=== PATIENT | male | born 1945 | race Caucasian/White ===

== ENCOUNTER 2024-10-17 14:08 | Outpatient (AMB) | payer MEDICARE, SELFPAY ==
--- NOTE | 2024-10-17 14:29 | MHC.PC.OV ---
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: No Accompanied by: Spouse Allergies No Known Allergies Allergy (Verified 10/17/24 14:30) Tobacco use date assessed: 10/17/24 Fall risk assessment: No Falls in past year Last assessed Fall Risk: 10/17/24 Dental Screening Dental Screen Date: 10/17/24 Did you have a dental visit in the last 12 months?: No Did you have a dental problem in the last 6 months where you did not have access to dental care?: No Was dental information given to patient?: Patient has dentist HPI HPI Comments History of Present Illness Details The patient is a 78 year old male with a past medical history of CHF, atrial fibrillation, htn, hld, presenting to [facility]. Transfer from [facility] CV: [facility]. On toprol 200mg daily, eliquis 5mg twice daily hctz 12.5mg daily, lipitor 80mg daily, lisinopril 40mg daily. Denies chest pain, shortness of breath Allergies: Continues on claritin as needed. TAkes zinc, b12 1000mg daily, vitamin C, vitamin D, MV Colonoscopy 07/2024-. Told no need to repeat but always has polyps so ?5 years. ROS CONSTITUTIONAL: Denies weight loss, fever and chills. HEENT: Denies changes in vision and hearing. RESPIRATORY: Denies SOB and cough. CV: Denies palpitations and CP GI: Denies abdominal pain, nausea, vomiting and diarrhea. : Denies dysuria and urinary frequency. MSK: Denies new myalgia and joint pain. SKIN: Denies rash and pruritus. NEUROLOGICAL: Denies headache PSYCHIATRIC: Denies recent changes in mood. PHYSICAL EXAM: GENERAL: Alert and oriented x 3. NAD EYES: EOMI. Anicteric. HENT: Moist mucous membranes. No scleral icterus. No cervical lymphadenopathy. LUNGS: Clear to auscultation bilaterally. CARDIOVASCULAR: Regular rate and rhythm. No murmur. No JVD. ABDOMEN: Soft, non-tender +bs EXTREMITIES: No edema. Non-tender. SKIN: No rashes or lesions. Warm. NEUROLOGIC: No focal neurological deficits. CN II-XII grossly intact PSYCHIATRIC: Cooperative. Appropriate mood and affect [facility], [facility] Surgical History (Updated 10/17/24 @ 14:36 by Temi Sanchez CMA) History of prostate surgery Family History (Updated 10/17/24 @ 14:35 by Temi Sanchez CMA) Mother Breast cancer Pancreatic cancer Other Diabetes Social History (Updated 10/17/24 @ 14:36 by Temi Sanchez CMA) Housing: House Alcohol intake: current Patient Tobacco Use Status: Never used Tobacco e-Cigarette/Vaping Use: Never Used Second Hand Smoke Exposure: No service: Yes Current occupational status: retired Cognitive needs: No Hearing needs: No Vision needs: Yes (cataracts) Questionnaire PHQ-9 Over the last 2 weeks, how often have you been bothered by any of the following problems? 1. Little interest or pleasure in doing things: not at all 2. Feeling down, depressed, or hopeless: not at all 3. Trouble falling or staying asleep, or sleeping too much: not at all 4. Feeling tired or having little energy: not at all 5. Poor appetite or overeating: not at all 6. Feeling bad about yourself - or that you are a failure or have let yourself or your family down: not at all 7. Trouble concentrating on things, such as reading the newspaper or watching television: not at all 8. Moving or speaking so slowly that other people could have noticed. Or the opposite - being so fidgety or restless that you have been moving around a lot more than usual: not at all 9. Thoughts that you would be better off or of hurting yourself in some way: not at all Total score: 0 Source: Developed by Drs. Rafy Nogueira, Brittney Sam, Hill Garza and colleagues, with an educational anselmo from [employer]. Thrive Questionnaire Date Thrive assessed: 10/10/24 I am a: Patient What is your living situation today?: I have a steady place to live Within the past 12 months, did the food you bought not last and you didn't have the money to get more?: Never true Within the past 12 months, did you worry whether your food would run out before you got money to buy more?: Never true Do you have trouble paying for medicines?: No Do you have trouble getting transportation to medical appointments?: No Do you have trouble paying your heating and electricity bill?: No Do you have trouble taking care of your child, family member or friend?: No Do you have trouble with day-to-day activities such as bathing, preparing meals, shopping, managing finances, etc.?: No Are you currently unemployed and looking for a job?: No Are you interested in more education?: No Please select the resources that you would like help with: None Currently or been in a relationship where the following occur: No concerns reported THRIVE Score: 0 AUDIT C Alcohol Use Questionnaire (AUDIT-C) 1. How often do you have a drink containing alcohol?: 2-4 times a month 2. How many drinks containing alcohol do you have on a typical day when you are drinking?: 1 or 2 3. How often do you have six or more drinks on one occasion?: Never Total Score: 2 CHUCKIE-7 AMB Questionnaire CHUCKIE-7 Feeling nervous, anxious, or on edge: 0 = Not at all Not being able to stop or control worryin = Not at all Worrying too much about different things: 0 = Not at all Trouble relaxin = Not at all Being so restless that it is hard to sit still: 0 = Not at all Becoming easily annoyed or irritable: 0 = Not at all Feeling afraid as if something awful might happen: 0 = Not at all Total CHUCKIE-7 score (0-4 normal; 5-9 mild; 10-14 moderate; 15-21 severe): 0 Source: Developed by Drs. Rafy Nogueira, Brittney Sam, Hill Garza and colleagues, with an educational aneslmo from [employer]. Physical exam (Primary Care) Vital Signs: Last Vital Signs Pulse 85 10/17/24 14:36 BP 110/64 10/17/24 14:36 Pulse Ox 98 10/17/24 14:36 Oxygen Delivery Method Room Air 10/17/24 14:36 BMI result Body Mass Index 31.5 Tobacco/Smoking Status: Tobacco use Status Tobacco use date assessed 10/17/24 10/17/24 14:40 Patient Tobacco Use Status Never used Tobacco 10/17/24 14:40 e-Cigarette/Vaping Use Never Used 10/17/24 14:40 PHQ-9: PHQ-9 Score PHQ-9: Total score 0 10/20/24 16:19 Thrive Assessment: Date of Thrive Assessment Date Thrive assessed 10/10/24 10/17/24 14:40 Currently or been in a relationship where the following occur: No concerns reported Coding Level of Care Code New Pt Level 4 (72287) Diagnoses Encounter to establish care Z76.89 Atrial fibrillation, unspecified type I48.91 Atrial fibrillation type: unspecified Assessment & Plan Assessment & Plan (1) Encounter to establish care: Code(s): Z76.89 - Persons encountering health services in other specified circumstances Category: Medical Plan: 78 y/o to estalbish care. Past medical, surgical, social and family history reviewed (2) Atrial fibrillation: Code(s): I48.91 - Unspecified atrial fibrillation Category: Medical Qualifiers: Atrial fibrillation type: unspecified Qualified Code(s): I48.91 - Unspecified atrial fibrillation Plan: Rhythm and rate controlled Orders: Referrals Neurology Referral I48.91 - Unspecified atrial fibrillation, Z86.73 - Personal history of transient ischemic attack (TIA), and cerebral infarction without residual deficits
[2024-10-17 14:36] VITALS: BP 110/64; PULSE 85; O2SAT 98; BMI 31.5
== END 2024-10-17 15:08 | disposition home or self-care (01) ==
PROVIDERS: PCP Internal Medicine; Visit Provider Internal Medicine
DX: Z76.89 Persons encountering health services in other specified circumstances (principal); I48.91 Unspecified atrial fibrillation

== ENCOUNTER → 2024-10-17 14:08 | Outpatient (BNVA) | payer MEDICARE, SELFPAY | PROVIDERS: PCP Internal Medicine; Visit Provider Internal Medicine | DX: Z76.89 Persons encountering health services in other specified circumstances (principal); I48.91 Unspecified atrial fibrillation; I11.0 Hypertensive heart disease with heart failure; I50.9 Heart failure, unspecified; E78.5 Hyperlipidemia, unspecified; Z86.73 Personal history of transient ischemic attack (TIA), and cerebral infarction without residual deficits; Z79.01 Long term (current) use of anticoagulants; Z79.899 Other long term (current) drug therapy | CPT/HCPCS: 99202 ==

== ENCOUNTER 2024-11-26 13:10 | Outpatient (AMB) | payer MEDICARE, SELFPAY ==
--- NOTE | 2024-11-26 13:11 | MHC.OFFVIS ---
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 Repeat 15 minutes before procedure as needed for anxiety metoprolol succinate ER 100 mg PO BID multivitamin 1 tab PO DAILY [polyethylene glycol 236 Take 240 ml by mouth once for 1 dose.] [zinc 50 mg .] HPI Comments Details: 79y/o male with HTN , Hyperlipidemia, Atrial fibrillation comes for neurological evaluation. He had a CVA 7 years ago - unable to describe the symptoms. He was admitted at [facility], diagnosed with Atrial fibrillation and started on eliquis. He was doing fine but last year he started having of confusion and disorientation - lasting few minutes. 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 He has loud snoring, hypersomnia. [facility] Medical History TIA (transient ischemic attack) Hyperlipidemia CHF (congestive heart failure) Atrial fibrillation HTN (hypertension) Surgical History History of prostate surgery Family History Mother Breast cancer Pancreatic cancer Other Diabetes Social History Housing: House Alcohol intake: current Patient Tobacco Use Status: Never used Tobacco e-Cigarette/Vaping Use: Never Used Second Hand Smoke Exposure: No service: Yes Current occupational status: retired Cognitive needs: No Hearing needs: No Vision needs: Yes (cataracts) Physical Exam Vital Signs: BMI result Body Mass Index 32.2 Const General: cooperative and comfortable Nutritional Appearance: overweight Orientation/consciousness: patient oriented x3 Eyes Pupils: Equal, round and reactive pupils present Neuro Other: Mild hyperreflexia General: patient oriented x3, gait normal, tone normal, moves all extremities and no focal motor deficits Cranial nerves: Yes Facial sensation intact/muscles of mastication intact, Yes Equal, round and reactive pupils present, Yes Nystagmus not present, Yes Normal facial strength present, Yes Midline tongue present and Yes Symmetric palate elevation present Cognition (Neuro): normal cognition Gait exam (Neuro): Normal gait present Motor exam (neuro): 5/5 motor strength present throughout and Normal motor muscle tone present throughout Deep tendon reflexes (DTR's): Right triceps reflex intensity grade: 2+, Left triceps reflex intensity grade: 2+, Rt Biceps (C5, C6): 2+, Left biceps reflex intensity grade: 2+, Right brachioradialis reflex intensity grade: 2+, Left brachioradialis reflex intensity grade: 2+, Right patellar reflex intensity grade: 2+ and Left patellar reflex intensity grade: 2+ Coordination: [id number] test normal Assessment & Plan Assessment & Plan (1) TIA (transient ischemic attack): Code(s): G45.9 - Transient cerebral ischemic attack, unspecified Category: Medical (2) Snoring: Code(s): R06.83 - Snoring Category: Medical (3) Hypersomnia: Code(s): G47.10 - Hypersomnia, unspecified Category: Medical Plan Report from [facility] or [facility] SLeep study to r/o sleep apnea Continue f/u with cardiology - eliquis and aspirin 81mg qd EEG His CT from February 2024 showed a Right frontal infarct - acute Orders: Orders RT PSG in-lab sleep study Today G47.10 - Hypersomnia, unspecified, I10 - Essential (primary) hypertension, I48.91 - Unspecified atrial fibrillation, R06.83 - Snoring Medications: New aspirin (Adult Aspirin Regimen) 81 mg PO DAILY Coding Level of Care Code New Pt Level 4 (60528) Complex EM visit Add On G2211 Diagnoses TIA (transient ischemic attack) G45.9 Snoring R06.83 Hypersomnia G47.10
[2024-11-26 13:12] VITALS: BMI 32.2
--- OUTSIDE RECORDS SUMMARY | 2024-11-26 15:14 | XMS_ITS | Encounter Summary ---
Author Organization [employer] [address] Care Team Providers Care Physicians And Surgeons Name Role Phone Jacquie Fiore MD Primary Care Provider [phone] Reason for Referral * Imaging (Routine) - Authorized Specialty Diagnoses / Procedures Referred By Jj mercado Referred To Contact Cardiology Diagnoses Longstanding persistent atrial fibrillation (CMS/HCC) Cerebrovascular accident (CVA), unspecified mechanism (CMS/HCC) Ascending aorta dilation (CMS/HCC) Abnormal echocardiogram Non-ischemic cardiomyopathy (CMS/HCC) Procedures Transthoracic echocardiogram (TTE) complete with PRN contrast, bubble, strain, and 3D order panel TN TTE W 2D IMAGE COMPLETE W DOPPLER ECHO & COLOR FLOW DOPPLER ECHO TN STEVIE 2D COMPLETE W/CONTRAST OR W & WO CONTRAST WITH DOPPLER Raj Alicea MD [address] [place] [address] [facility] Referral ID Status Reason Start Date Expiration Date V isits Requested Visits Authorized [id number] Authorized 11/12/2024 11/12/2025 1 1 Reason for Visit * Reason Comments Follow-up 6 mo Encounter Details Date Type Department Care Team (Late st Contact Info) Description 11/12/2024 9:50 AM EST Office Visit [facility] - [address] [phone] Raj Alicea MD [address] [id number] Longstanding persistent atrial fibrillation (CMS/HCC) (Primary Dx); Cerebrovascular accident (CVA), unspecified mechanism (CMS/HCC); Ascending aorta dilation (CMS/HCC); Abnormal echocardiogram; Non-ischemic cardiomyopathy (CMS/HCC) Social History Tobacco Use Types Packs/Day Years Used Date Smoking Tobacco: Never Smokeless Tobacco: Never Alcohol Use Standard Drinks/Week Comments Yes 14 (1 standard drink = 0.6 oz pu re alcohol) Sex and Gender Information Value Date Recorded Sex Assigned at Not on file Gender Identity Not on file Sexual Orientation Not on file Job Start Date Occupation Industry Not on file Not on file Not on file documented as of this encounter Last Filed Vital Signs Vital Sign Reading Time Taken Comments Blood Pressure 130/70 11/12/2024 9:58 AM EST Pulse 79 11/12/2024 9:58 AM EST Temperature - - Respiratory Rate - - Oxygen Saturation 98% 11/12/2024 9:58 AM EST Inhaled Oxygen Concentration - - Weight 102 kg (225 lb) 11/12/2024 9:58 AM EST Height 177.8 cm (5' 10 ) 11/12/2024 9:58 AM EST Body Mass Index 32.28 11/12/2024 9:58 AM EST documented in this encounter Progress Notes * Raj Alicea MD - 11/12/2024 9:50 AM EST -Reji Salcedo is a 79 y.o. old male Last office visit was in March 2024 with Sandra. Elmer permanent A-fib, Nonischemic cardiomyopathy. He had a cardiac cath in 2013. They mention that note increased alcohol use, 30% ejection fraction down from 50% the year before. Exercise MIBI showed inferior and apical perfusion defects. Coronary arteries were normal.,hypertension, hyperlipidemia, stroke with altered mental status in February 2024. He had been playing golf when he suddenly became confused. He had facial droop. Initially he refused to go to the ER when 911 was called. At home he was very fatigued and tired and his brought him to the ER. There was an acute to subacute right frontal infarct when compared to 2017. But it had been noted on an MRI in 2017. CTA of the head and neck revealed no large vessel occlusion. Moderate narrowing and tortuosity of the upper basilar artery. Echo showed a dyskinetic LV apex with an EF of 50 to 55%. He was back to the ER in March 2024 with acute onset of confusion without focal abnormalities. Repeat CT scan was stable. He was alreadyon Eliquis, atorvastatin and antihypertensives. When I scratch that when he was seen 6 months ago he was feeling well and staying active doing a lot of gardening etc. ROS: Since March there have been no further spells. Throughout the warm weather he played golf and continue to do his yard work. PAST MEDICAL HISTORY: Patient Active Problem List Diagnosis Date Noted Abnormal echocardiogram 09/21/2024 Alcohol use 09/21/2024 Diagnosis deferred 09/21/2024 Secondary hypercoagulable state (CMS/HCC) 04/26/2024 TIA (transient ischemic attack) 04/26/2024 CVA (cerebral vascular accident) (CMS/HCC) 04/23/2024 HLD (hyperlipidemia) 04/23/2024 Longstanding persistent atrial fibrillation (CMS/HCC) 04/23/2024 Ascending aorta dilation (CMS/HCC) 01/17/2022 Tubular adenoma of colon 09/12/[address] 11/25/2016 Non-ischemic cardiomyopathy (CMS/HCC) 07/10/2014 Atrial fibrillation (CMS/HCC) 03/30/2011 Elevated prostate specific antigen (PSA) 12/21/2010 Obesity, unspecified 09/07/2008 Pure hypercholesterolemia 06/29/2006 Essential hypertension, benign 01/01/2006 FAMILY HISTORY: Family History Problem Relation Name Age of Onset Heart attack Father No Known Problems Daughter No Known Problems Son Heart attack Sister age 60 Lymphoma Uncle nephew Blindness Neg Hx Cataracts Neg Hx Glaucoma Neg Hx Macular degeneration Neg Hx Strabismus Neg Hx SOCIAL HISTORY: Social History Tobacco Use Smoking status: Never Smokeless tobacco: Never Substance Use Topics Alcohol use: Yes Alcohol/week: 14.0 standard drinks of alcohol ACTIVE MEDICATIONS: Outpatient Medications Prior to Visit Medication Sig Dispense Refill ALPRAZolam (XANAX) 0.25 mg tablet Take 2 Tablets by mouth as needed for Anxiety (1 tablet 30 mins prior to procedure) for up to 2 doses. apixaban (ELIQUIS) 5 mg tablet 2 (two) times a day. ascorbic acid (VITAMIN C) 1,000 mg CR tablet Take by mouth. atorvastatin (LIPITOR) 80 mg tablet TAKE ONE TABLET BY MOUTH EVERY DAY 90 tablet 1 cholecalciferol (VITAMIN D-3) 25 mcg (1,000 unit) tablet Take by mouth daily. cyanocobalamin (VIT B-12) 1,000 mcg tablet extended release ER tablet Take by mouth. hydroCHLOROthiazide (MICROZIDE) 12.5 mg capsule TAKE ONE CAPSULE BY MOUTH EVERY DAY 90 capsule 1 lisinopril (PRINIVIL,ZESTRIL) 40 mg tablet TAKE ONE TABLET BY MOUTH EVERY DAY 90 tablet 1 loratadine (CLARITIN) 10 mg tablet Take 1 tablet (10 mg total) by mouth 1 (one) time each day. metoprolol succinate (TOPROL-XL) 100 mg 24 hr tablet Take 2 tablets (200 mg total) by mouth 1 (one)time each day. MULTIVITAMIN ORAL 1 qd zinc gluconate 50 mg tablet Daily bisacodyL (DULCOLAX) 5 mg EC tablet Take 2 tablets by mouth right before your first dose of liquid prep. (Patient not taking: Reported on 11/12/2024) No facility-administered medications prior to visit. ALLERGIES: @ALL@ PHYSICAL EXAM: Blood pressure 130/70, pulse 79, height 1.778 m (70 ), weight 102 kg (225 lb), SpO2 98%. Physical Exam Constitutional: Appearance: Normal appearance. Comments: Overweight HENT: Head: Normocephalic. Eyes: Extraocular Movements: Extraocular movements intact. Pupils: Pupils are equal, round, and reactive to light. Neck: Vascular: No carotid bruit. Comments: No JVD or bruit Cardiovascular: Rate and Rhythm: Normal rate. Rhythm irregular. Pulses: Normal pulses. Heart sounds: Normal heart sounds. Pulmonary: Effort: Pulmonary effort is normal. Breath sounds: Normal breath sounds. Abdominal: General: Bowel sounds are normal. Palpations: Abdomen is soft. Musculoskeletal: Right lower leg: No edema. Left lower leg: No edema. Skin: General: Skin is warm and dry. Neurological: General: No focal deficit present. Psychiatric: Mood and Affect: Mood normal. EKG: From the hospital in March with a controlled rate otherwise unremarkable TESTING: Abstract on 09/21/2024 Component Date Value Ref Range Status Hepatitis C Screening 12/26/2013 ABSTRACTED Final Falls Risk Assessment 02/29/2024 ABSTRACTED Final Annual BMP Blood Test 09/04/2023 ABSTRACTED Final Colonoscopy 08/06/2024 NO INTERPRETATION, ABSTRACTED Final LDL/HDL Ratio 09/04/2023 2 0 - 4 Final Triglycerides 09/04/2023 50 0 - 150 mg/dL Final Cholesterol 09/04/2023 127 0 - 200 mg/dL Final HDL 09/04/2023 61 40 mg/dL Final LDL Cholesterol 09/04/2023 56 0 - 100 mg/dL Final ASSESSMENT/PLAN: Problem List Items Addressed This Visit Abnormal echocardiogram Ascending aorta dilation (CMS/HCC) CVA (cerebral vascular accident) (CMS/HCC) Longstanding persistent atrial fibrillation (CMS/HCC) - Primary Non-ischemic cardiomyopathy (CMS/HCC) No orders of the defined types were placed in this encounter. Plan: Update echocardiogram as it has been over 8 months. Then reassess medical therapy for cardiomyopathy. Add baby aspirin to Eliquis given recurrent probable TIAs. Discussed risk of bleeding and signs andsymptoms of bleeding including intracranial hemorrhage. Return to the office in 6 months to see Sandra. The [facility] team will continue to co-manage this patient following the plan of care as established by my initial visit and as per AHA guidelines for ongoing management and surveillance of permanent A-fib, cardiomyopathy, . This will include medication titration, initiation of appropriate medications and further titration, and diagnostic studies to manage this disease process. @ESIGNATURE@ documented in this encounter Plan of Treatment Upcoming Encounters Date Type Department Care Team (Late st Contact Info) Description 01/21/2025 11:00 AM EDT Ancillary Procedure [facility] - [address] [place] [address] Scheduled Orders Name Type Priority Associated Diagnoses Orde r Schedule Transthoracic echocardiogram (TTE) complete with PRN contrast, bubble, strain, and 3D order panel Echocardiography Routine Longstanding persistent atrial fibrillation (CMS/HCC) Cerebrovascular accident (CVA), unspecified mechanism (CMS/HCC) Ascending aorta dilation (CMS/HCC) Abnormal echocardiogram Non-ischemic cardiomyopathy (CMS/HCC) 1 Occurrences starting 11/12/2024 until 11/12/2025 documented as of this encounter Visit Diagnoses Diagnosis Longstanding persistent atrial fibrillation (CMS/HCC)- Primary Cerebrovascular accident (CVA), unspecified mechanism (CMS/HCC) Ascending aorta dilation (CMS/HCC) Thoracic aneurysm without mention of rupture Abnormal echocardiogram Nonspecific (abnormal) findings on radiological and other examination of other intrathoracic organs Non-ischemic cardiomyopathy (CMS/HCC) Other primary cardiomyopathies documented in this encounter Care Teams Physicians And Surgeons Relationship Specialty Start Date End Date Jacquie Fiore MD [address] [place] [id number] PCP - General 04/01/24 documented as of this encounter
--- OUTSIDE RECORDS SUMMARY | 2024-11-26 15:14 | XMS_ITS | Encounter Summary ---
Author Organization [employer] [place] [address] Care Team Providers Care Relish Maker Name Role Phone Jacquie Fiore MD Primary Care Provider [phone] Reason for Visit * Reason Comments Back Pain Slipped on ice 2 day s ago. Encounter Details Date Type Department Care Team (Late st Contact Info) Description 11/21/2024 11:00 AM EST Office Visit [facility] [place] [address] [place] [address] Fernando Junior, [employer] OPERATOR APPRENTICE [address], [place] [id number] Pain of left hip (Primary Dx) Social History Tobacco Use Types Packs/Day Years [...] Sign Reading Time Taken Comments Blood Pressure 112/60 11/21/2024 11:00 AM EST Pulse 72 11/21/2024 11:00 AM EST Temperature 36.8 ??C (98.3 ??F) 11/21/2024 11:[address] Respiratory Rate - - Oxygen Saturation 95% 11/21/2024 11:00 AM EST Inhaled Oxygen Concentration - - Weight - - Height - - Body Mass Index - - documented in this encounter Progress Notes * Fernando Junior NP - 11/21/2024 11:00 AM EST CHIEF COMPLAINT: Back Pain (Slipped on ice 2 days ago.) HPI: Reji Salcedo is a 79 y.o. old male presents urgent care for evaluation of left hip pain. Patient advises that 4 days ago he slipped on the ice landing on the left side. He complains of pain atthe left greater trochanter with significant ecchymosis. Denies pain rating down the leg. Denies numbness rating down the leg. Endorses full sensation. Denies saddle paresthesia or incontinence. Denies inability to ambulate or bear weight. Denies pain to the spine. Denies fevers, chills, nausea or vomiting. Does endorse being on blood thinners. ROS: 12 point review of symptoms unremarkable except for those idenitified in the HPI. PAST MEDICAL HISTORY: Patient Active Problem List [...] Pure hypercholesterolemia 06/29/2006 Essential hypertension, benign 01/01/2006 Past Surgical History: Procedure Laterality Date COLONOSCOPY 06/2005 PROCEDURE: HISTORICAL COLONOSCOPY; COMMENT: Normal COLONOSCOPY 2001 PROCEDURE: HISTORICAL COLONOSCOPY; COMMENT: polyp COLONOSCOPY 2014 PROCEDURE: HISTORICAL COLONOSCOPY; COMMENT: 4 small polyps: Hyperplastic x2, low risk adenoma x2 COLONOSCOPY 09/02/2020 PROCEDURE: HISTORICAL COLONOSCOPY; COMMENT: Moderately large polyps x2: Tubular adenoma x2. PROSTATECTOMY 02/26/2012 PROCEDURE: PROSTATECTOMY; COMMENT: laparascopic radical prostatectomy TONSILLECTOMY PROCEDURE: HISTORICAL TONSILLECTOMY SOCIAL HISTORY: Social History Tobacco Use Smoking status: Never Smokeless tobacco: Never Substance Use Topics Alcohol use: Yes Alcohol/week: 14.0 standard drinks of alcohol FAMILY HISTORY: Family History Problem Relation Name Age of Onset Heart attack Father No Known Problems Daughter No Known Problems Son Heart attack Sister age 60 Lymphoma Uncle nephew Blindness Neg Hx Cataracts Neg Hx Glaucoma Neg Hx Macular degeneration Neg Hx Strabismus Neg Hx Family Status Relation Name Status Father at age 79 [place], emphysema Daughter Alive Healthy Son Alive Healthy x apical hypertrophi cardiomyopathy and aortic root dilitation Sister at age 60 [place] Uncle (Not Specified) Neg Hx (Not Specified) Mother at age 75 diabetes, total knee replacement, breast cancer, CHF MGM at age 80s Old age MGF at age 80s Old age PGM Colon cancer PGF at age 73 UT Uncle Alive Lymphoma No partnership data on file MEDICATIONS DISCONTINUED/REORDERED: There are no discontinued medications. ACTIVE MEDICATIONS: No outpatient medications have been marked as taking for the 11/21/24 encounter (Office Visit) with Fernando Junior NP. ALLERGIES: No Known Allergies PHYSICAL EXAM: Vitals: 11/21/24 1100 BP: 112/60 Pulse: 72 Temp: 36.8 ??C (98.3 ??F) SpO2: 95% APPEARANCE: alert, well appearing, and in no distress HEART: normal rate and regular rhythm does have history of A-fib LUNG: clear to auscultation, no wheezes or rales, and unlabored breathing BACK: full range of motion, no tenderness, palpable spasm or pain on motion, normal reflexes and strength bilateral lower extremities, sensory exam intact bilateral lower extremities EXTREMITIES: warm well perfused with no cyanosis, clubbing or edema NEURO: alert, oriented, normal speech, no focal findings or movement disorder noted Left hip: Pain at the greater trochanter upon palpation. Significant ecchymosis. No deformity, crepitus, erythema or swelling. LABS/IMAGING: X-ray of the left hip IMPRESSION: 1. Pain of left hip XR Hip 2-3 Views Left PLAN: The patient's PMH, problem list and medications were reviewed in reference to the above diagnosis/diagnoses. Based on review of symptoms, HPI and physical examination, x-ray of the left hip was obtained in the office today. Per my read no acute findings. Sent to radiology for further read Based on ROS, HPI, and PE, suggestive of acute hip pain with ecchymosis without evidence of cauda equina syndrome at this time. No evidence of fracture at this time. No evidence of decreased circulation. Discussed causes in depth. Discussed rest, ice/heat, compression, gentle stretching, Tylenol, gentle massage. Educated on red flags symptoms. Advised to go to the ER or call 911 for these symptoms. Patient understands the plan. Patient verbalizes agreement with the plan. Orders Placed This Encounter Procedures XR Hip 2-3 Views Left Standing Status: Future Number of Occurrences: 1 Standing Expiration Date: 11/21/2025 Fernando Junior NP on 11/21/2024 at 11:31 AM EST Today's documentation was made using voice recognition software. This note may contain grammatical errors secondary to this software. documented in this encounter Plan of Treatment Upcoming Encounters Date Type Department Care Team (Late st Contact Info) Description 01/21/2025 11:00 AM EDT Ancillary Procedure [facility] [address] [facility] [address] [place] [address] documented as of this encounter Results * XR Hip 2-3 Views Left (11/21/2024 11:25 AM EST) Anatomical Region Laterality Modality Lower Extremities, Hip Left Radiograp hic Imaging 11/21/2024 11:3 2 AM EST Impressions 11/21/2024 11:34 AM EST No acute fracture or dislocation of the left hip. Soft tissue swelling is present. -------- FINAL REPORT -------- Dictated By: Krishna Ng Dictated Date: 11/21/2024 11:32 ET Assigned Physician: Krishna Ng Reviewed and Electronically Signed By: Krishna Ng Signed Date: 11/21/2024 11:34 ET Workstation ID: [id number] Transcribed By: Self Edit Transcribed Date: 11/21/2024 11:32 ET Narrative 11/21/2024 11:34 AM EST HISTORY: hip pain post fall with significant ecchymosis TECHNIQUE: Frontal and lateral radiographs of the left hip.An AP radiograph of the pelvis was obtained to assess joint symmetry. COMPARISON: None FINDINGS: No acute fracture or dislocation is identified. ??Subchondral sclerosis of the superior acetabulum. ??The femoral head is well-seated within the acetabulum. ??Moderate degenerative changes of the lower lumbar spine. ??The pubic symphysis is grossly intact. ??Moderate stool throughout the colon. ??Soft tissue swelling is present. Procedure Note Krishna Ng MD - 11/21/2024 HISTORY: hip pain post fall with significant ecchymosis TECHNIQUE: Frontal and lateral radiographs of the left hip.An APradiograph of the pelvis was obtained to assess joint symmetry. COMPARISON: None FINDINGS: No acute fracture or dislocation is identified. Subchondral sclerosis ofthe superior acetabulum. The femoral head is well-seated within theacetabulum. Moderate degenerative changes of the lower lumbar spine. Thepubic symphysis is grossly intact. Moderate stool throughout the colon.Soft tissue swelling is present. IMPRESSION: No acute fracture or dislocation of the left hip. Soft tissue swelling is present. -------- FINAL REPORT -------- Dictated By: Krishna Ng Dictated Date: 11/21/2024 11:32 ET Assigned Physician: Krishna Ng Reviewed and Electronically Signed By: Krishna Ng Signed Date: 11/21/2024 11:34 ET Workstation ID: [id number] Transcribed By: Self Edit Transcribed Date: 11/21/2024 11:32 ET Fernando Junior NP IMG XR PROCEDURES documented in this encounter Visit Diagnoses Diagnosis Pain of left hip- Primary Pain of left hip documented in this encounter Care Teams Relish Maker Relationship Specialty Start Date End Date Jacquie Fiore MD [address] [place] [id number] PCP - General 04/01/24 documented as of this encounter
--- OUTSIDE RECORDS SUMMARY | 2024-11-26 15:14 | XMS_ITS | Encounter Summary ---
Author Organization [employer] [place] [address] Care Team Providers Care Mud Worker Name Role Phone Jacquie Fiore MD Primary Care Provider [phone] Encounter Details Date Type Department Care Team (Latest Contact Info) Description 11/21/2024 11:15 AM EST - 11/21/2024 11:59 PM [facility] Hospital Encounter [facility] [address] [phone] Pain of left hip Discharge Disposition: Home or Self Care Social History Tobacco Use Types Packs/Day Years [...] on file documented as of this encounter Medications at Time of Discharge Medication Sig Dispensed Refills Start Date End Date ALPRAZolam (XANAX) 0.25 mg tablet Take 2 Tablets by mouth as needed for Anxiety (1 tablet 30 mins prior to procedure) for up to 2 doses. 04/01/2024 apixaban (ELIQUIS) 5 mg tablet 2 (two) times a day. 04/02/2024 ascorbic acid (VITAMIN C) 1,000 mg CR tablet Take by mouth. atorvastatin (LIPITOR) 80 mg tablet TAKE ONE TABLET BY MOUTH EVERY DAY 90 tablet 1 09/08/2024 bisacodyL (DULCOLAX) 5 mg EC tablet Take 2 tablets by mouth right before your first dose of liquid prep. 07/23/2024 cholecalciferol (VITAMIN D-3) 25 mcg (1,000 unit) tablet Take by mouth daily. cyanocobalamin (VIT B-12) 1,000 mcg tablet extended release ER tablet Take by mouth. hydroCHLOROthiazide (MICROZIDE) 12.5 mg capsule TAKE ONE CAPSULE BY MOUTH EVERY DAY 90 capsule 1 09/08/2024 lisinopril (PRINIVIL,ZESTRIL) 40 mg tablet TAKE ONE TABLET BY MOUTH EVERY DAY 90 tablet 1 09/08/2024 metoprolol succinate (TOPROL-XL) 100 mg 24 hr tablet Take 2 tablets (200 mg total) by mouth 1 (one) time each day. 08/29/2024 MULTIVITAMIN ORAL 1 qd zinc gluconate 50 mg tablet Daily documented as of this encounter Discharge Disposition Disposition Code Departure Means Destination Home or Self Care documented in this encounter Plan of Treatment Upcoming Encounters Date Type Department Care Team (Late st Contact Info) Description 01/21/2025 11:00 AM EDT Ancillary Procedure [facility] [address] [facility] [address] [place] [address] documented as of this encounter Procedures Procedure Name Priority Date/Time Associated Diagnosis Comments XR HIP 2-3 VIEWS LEFT STAT 11/21/2024 11:25 AM EST Pain of left hip documented in this encounter Results * XR Hip 2-3 [...] Signed Date: 11/21/2024 11:34 ET Workstation ID: [id number] Transcribed By: Self Edit Transcribed Date: 11/21/2024 [...] Signed Date: 11/21/2024 11:34 ET Workstation ID: [id number] Transcribed By: Self Edit Transcribed Date: 11/21/2024 11:32 ET Fernando Junior NP IMG XR PROCEDURES documented in this encounter Visit Diagnoses Diagnosis Pain of left hip documented in this encounter Care Teams Mud Worker Relationship Specialty Start Date End Date Jacquie Fiore MD [address] [place] [id number] PCP - General 04/01/24 documented as of this encounter
--- OUTSIDE RECORDS SUMMARY | 2024-11-26 15:14 | XMS_ITS | Clinical Summary ---
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 Name Role Phone Jacquie Fiore MD Primary Care Provider [phone] Allergies No known active allergies Medications Medication Sig Dispensed Refills Start Date End Date Status atorvastatin (LIPITOR) 80 mg tablet TAKE ONE TABLET BY MOUTH EVERY DAY 90 tablet 1 09/08/2024 Active hydroCHLOROthiazide (MICROZIDE) 12.5 mg capsule TAKE ONE CAPSULE BY MOUTH EVERY DAY 90 capsule 1 09/08/2024 Active lisinopril (PRINIVIL,ZESTRIL) 40 mg tablet TAKE ONE TABLET BY MOUTH EVERY DAY 90 tablet 1 09/08/2024 Active ALPRAZolam (XANAX) 0.25 mg tablet Take 2 Tablets by mouth as needed for Anxiety (1 tablet 30 mins prior to procedure) for up to 2 doses. 04/01/2024 Active apixaban (ELIQUIS) 5 mg tablet 2 (two) times a day. 04/02/2024 Active ascorbic acid (VITAMIN C) 1,000 mg CR tablet Take by mouth. Active bisacodyL (DULCOLAX) 5 mg EC tablet Take 2 tablets by mouth right before your first dose of liquid prep. 07/23/2024 Active cholecalciferol (VITAMIN D-3) 25 mcg (1,000 unit) tablet Take by mouth daily. Active cyanocobalamin (VIT B-12) 1,000 mcg tablet extended release ER tablet Take by mouth. Act sarina loratadine (CLARITIN) 10 mg tablet Take 1 tablet (10 mg total) by mouth 1 (one) time each day. 08/22/2024 Active metoprolol succinate (TOPROL-XL) 100 mg 24 hr tablet Take 2 tablets (200 mg total) by mouth 1 (one) time each day. 08/29/2024 Active MULTIVITAMIN ORAL 1 qd Active zinc gluconate 50 mg tablet Daily Active Active Problems Problem Noted Date Diagnosed Date Abnormal echocardiogram 09/21/2024 Overview (09/21/2024): 50% EF; LVH; mild pul htn Alcohol use 09/21/2024 Diagnosis deferred 09/21/2024 Overview (09/21/2024): Psychosexual dysfunction with inhibited sexual excitement Secondary hypercoagulable state 04/26/2024 TIA (transient ischemic attack) 04/26/2024 Overview (09/21/2024): Last Assessment & Plan: The patient had 2 episodes recently where he experienced acute onset confusion as well as 1 episode where his friends had noticed facial droop. The patient's imaging revealed a chronic right MCA infarct without acute/subacute infarcts or intracranial bleeding. CTA head and neck revealed no large vessel occlusion, moderate narrowing of the tortuous upper basilar area slightly worse than in 2017. He was seen in consultation by neurology who stated that given he was already on Eliquis, atorvastatin, and antihypertensives, there was no additional medications that were needed to prevent stroke or TIA. His symptoms were felt to be likely secondary to a TIA. ER precautions reviewed as well as the importance of remaining compliant with all of his current medical therapies. CVA (cerebral vascular accident) 04/23/2024 HLD (hyperlipidemia) 04/23/2024 Longstanding persistent atrial fibrillation 03/30 Ascending aorta dilation 01/17/2022 Overview (09/21/2024): Last Assessment & Plan: The patient's most recent echocardiogram completed 01/25/2024 revealed stable ascending aorta and sinus of Valsalva dilatation. We will continue to follow yearly with serial imaging. Tubular adenoma of colon 09/12/2020 Overview (09/21/2024): 08/[address] 11/25/2016 Overview (09/21/2024): 09/2016-dilated ascending aorta- Hepatic cysts, adrenal incidentaloma, small pulm nodule (low risk no f/up needed) Last Assessment & Plan: New orders requested. Non-ischemic cardiomyopathy 07/10/2014 Overview (09/21/2024): Last Assessment & Plan: Most recent echocardiogram completed during recent hospitalization revealed an EF of 50 to 55% with a dyskinetic apex. Unable to determine diastolic function. This is improved from previous echocardiogram revealing an EF of 40% on 01/25/2024. The patient appears euvolemic on exam and offers no symptoms concerning for acute heart failure. We will not make any changes to his current medical therapies and continue with beta-blockade and MICHAEL inhibitor. He is already on hydrochlorothiazide which appears to be providing adequate diuresis for him at this time in addition to managing his blood pressure adequately. I've asked the patient to call if they develop worsening symptoms of heart failure such as increased shortness of breath, new or worsening cough, increased swelling in the legs or ankles, or weight gain of more than 2 pounds in one day or 4 pounds in one week. Atrial fibrillation 03/30/2011 Overview (09/21/2024): Anticoagulated with apixaban, [id number] score of 4 Rate control strategy CVA 2016 requiring TPA without residual Last Assessment & Plan: The patient's rate is well-controlled on metoprolol; he reports strict compliance with anticoagulation for cardioembolic prophylaxis. He remains on 5 mg apixaban twice daily which is the appropriate dose for his weight, age, and renal function. We discussed the risks and benefits of continuing with anticoagulation and wishes to continue with the current plan. He is aware to seek emergent medical attention for any uncontrolled bleeding, signs or symptoms of GI or other internal bleeding, or for any head injury. Elevated prostate specific antigen (PSA) 011 Obesity, unspecified 09/07/2008 Overview (09/21/2024): Last Assessment & Plan: Patient is obese. Approaches towards weight loss are discussed, including burning more calories than one takes in by portion control and regular exercise with an emphasis on duration rather than intensity . Pure hypercholesterolemia 06/29/2006 Overview (09/21/2024): Last Assessment & Plan: Patient's most recent lipid panel was completed on 09/04/2023 revealing an LDL of 56; this is at goal for this patient who has no known history of coronary artery disease or diabetes but does have a history of CVA. Continue atorvastatin 80 mg once daily. Essential hypertension, benign 01/01/2006 Overview (09/21/2024): Last Assessment & Plan: Blood pressure is well-controlled on current medical therapies; continue hydrochlorothiazide, lisinopril, and metoprolol. Renal function and electrolytes stable on most recent check 04/06/2024. Encounters Date Type Department Care Team Description 11/21/2024 11:15 AM EST - 11/21/2024 11:59 PM [facility] Hospital Encounter Walk-In Clinic XRAY [facility] [address] [place] [phone] Pain of left hip Discharge Disposition: Home or Self Care 11/21/2024 11:00 AM EST Office Visit Walk-In Clinic [address] [id number] [place] [phone] Fernando Junior, PIPELINES LABORER Pain of left hip (Primary Dx) 11/12/2024 9:50 AM EST Office Visit [facility] [address] [facility] [address] [place] [phone] Raj Alicea MD Longstanding persistent atrial fibrillation (CMS/HCC) (Primary Dx); Cerebrovascular accident (CVA), unspecified mechanism (CMS/HCC); Ascending aorta dilation (CMS/HCC); Abnormal echocardiogram; Non-ischemic cardiomyopathy (CMS/HCC) 09/16/2024 Telephone Adult Medicine [address] [phone] Jacquie Fiore MD orders call from Last 3 Months Immunizations Name Administration Dates Next Due DTaP, Unspecified 08/28/2001 H1N1 Inj Preservative Free 11/01/2009 Influenza Quadravalent, MDCK , 0.5ml, with preservative (Flucelvax) 6mo and older 06/18/2016 Influenza trivalent, 0.5mL ( Fluad) 65yo and older 08/12/2023,07/18/2022,06/06/2017 Influenza trivalent, 0.5mL, preservative free (Fluarix; FluLaval; Fluzone) ages 6mo and older (Afluria) 3 years and older 06/19/2020,07/08/2018,07/29/2015,06/12,09/02/2013,07/31/2012,08/10/2011 ,08/11/2010,07/28/2009,08/27/2008,07/29 Influenza, Unspecified 06/18/2016 Topicmarks SARS-CoV-2 COVID-19, mRNA, LNP-S, preservative free 08/29/2022,02/19/2022,08/21/2021,12/29,12/08/2020 Pneumococcal conjugate 13 va lent (Prevnar 13, PCV13) 2mo and older 10/28/2015,10/10/2015,03/03/2015 Pneumococcal conjugate 20 va lent (Prevnar 20, PCV 20) 2mo and older 01/03/2024 Pneumococcal polysaccharide 23 valent (Pneumovax 23) 2yo and older 04/10/2012 Td Tetanus diptheria (Tdvax) 7yo and older 04/11/2018,08/28/2001 Tdap Tetanus diptheria acell ular pertussis (Boostrix; Adacel) 7yo and older 06/18/2016,04/29/2010 Zoster Live 01/11/2014 Zoster recombinant (Shingrix ) 19yo and older 07/22/2020,05/22/2018 Surgical History Surgery Date Site/Laterality Comments TONSILLECTOMY PROCEDURE: HISTORICAL TONSILLECTOMY COLONOSCOPY 06/2005 PROCEDURE: HISTORICAL COLONOSCOPY; COMMENT: Normal PROSTATECTOMY 02/26/2012 PROCEDURE: PROSTATECTOMY; COMMENT: laparascopic radical prostatectomy COLONOSCOPY 2001 PROCEDURE: HISTORICAL COLONOSCOPY; COMMENT: polyp COLONOSCOPY 2014 PROCEDURE: HISTORICAL COLONOSCOPY; COMMENT: 4 small polyps: Hyperplastic x2, low risk adenoma x2 COLONOSCOPY 09/02/2020 PROCEDURE: HISTORICAL COLONOSCOPY; COMMENT: Moderately large polyps x2: Tubular adenoma x2. Medical History Medical History Date Comments Essential hypertension, benign D X:Essential hypertension, benign Overweight(278.02) DX:Overweight (278.02) Mixed hyperlipidemia DX:Mixed hy perlipidemia Psychosexual dysfunction wit h inhibited sexual excitement 01/01/2006 DX:Psychosexual dysfunctio n with inhibited sexual excitement Prostate cancer (CMS/HCC) 03/08/2011 DX:Pro state cancer (HCC) Atrial fibrillation (CMS/HCC) 03/30/2011 DX :Atrial fibrillation (HCC) Abnormal echocardiogram DX:Abnor mal echocardiogram; COMMENT: 50% EF; LVH; mild pul htn Family History Medical History Relation Name Comments No Known Problems Daughter Heart attack Father Heart attack Sister age 60 No Known Problems Son Lymphoma Uncle 1 nephew Blindness Neg Hx Cataracts Neg Hx Glaucoma Neg Hx Macular degeneration Neg Hx Strabismus Neg Hx Relation Name Status Comments Daughter Alive Healthy Father (Age 79) [place], emph[place] Maternal Grandfather (Age 80s) O ld age Maternal Grandmother (Age 80s) O ld age Mother (Age 75) diabetes, total knee replacement, breast cancer, CHF Paternal Grandfather (Age 73) [place] Paternal Grandmother Colon c ancer Sister (Age 60) [place] Son Alive Healthy x apica l hypertrophi cardiomyopathy and aortic root dilitation Uncle 1 Uncle 2 Alive Lymphoma Social History Tobacco Use Types Packs/Day Years [...] file Not on file Not on file Obstetrics History Last Filed Vital Signs Vital Sign Reading [...] Mass Index 32.28 11/12/2024 9:58 AM EST Plan of Treatment Upcoming Encounters Date Type Department Care Team (Late st Contact Info) Description 01/21/2025 11:00 AM EDT Ancillary Procedure [facility] [address] [place] [address] Health Maintenance Due Date Last Done Comments Depression Screening 10/07/2022 Medicare Annual Wellness Visit 10/07/2022 Social Influencers of Health Screening 10/07/2022 Hypertension/CHF/CAD Annual BMP Blood Test 09/04/2024 09/04/2023 Falls Risk Assessment 02/28/2025 02/29/2024 DTaP,Tdap,and Td Vaccines (6 - Td or Tdap) 04/11/2028 04/11/2018, 06/18/2016, 04/29/2010, Additional history exists Cholesterol Screening (Lipid Panel) 09/04/2028 09/04/2023 Hepatitis C Screening Completed 12/26/2013 Zoster Vaccines Completed 09/28/2020, 06/30, 05/22/2018, Additional history exists RSV Immunization Patients 60+ Years Old Completed 09/02/2023 Pneumococcal Vaccine: 65+ Years Completed 01/03/2024, 10/28/2015, 10/10/2015, Additional history exists COVID-19 Vaccine Completed 07/30/2024, , 08/29/2022, Additional history exists Influenza Vaccine Completed 07/30/2024, , 07/03/2023, Additional history exists Colorectal Cancer Screening: Colonoscopy Discontinued 08/06/2024 HIB Vaccines Aged Out No longer eligi ble based on patient's age to complete this topic HPV Vaccines Aged Out No longer eligi ble based on patient's age to complete this topic Hepatitis A Vaccines Aged Out No long er eligible based on patient's age to complete this topic Hepatitis B Vaccines Aged Out No long er eligible based on patient's age to complete this topic IPV Vaccines Aged Out No longer eligi ble based on patient's age to complete this topic MMR Vaccines Aged Out No longer eligi ble based on patient's age to complete this topic Meningococcal ACWY Vaccine Aged Out N o longer eligible based on patient's age to complete this topic RSV Immunization Patients Under 20 months Aged Out No longer eligible based on patient's age to complete this topic Varicella Vaccines Aged Out No longer eligible based on patient's age to complete this topic Procedures Procedure Name Priority Date/Time Associated Diagnosis Comments XR HIP 2-3 VIEWS LEFT STAT 11/21/2024 11:25 AM EST Pain of left hip COLONOSCOPY Routine 08/06/2024 FALLS RISK ASSESSMENT Routine 02/29/2024 ANNUAL BMP BLOOD TEST Routine 09/04/2023 LIPID PANEL Routine 09/04/2023 HEPATITIS C SCREENING Routine 12/26/2013 from Last 3 Months or Most Recently Relevant to Health Maintenance Results * XR Hip 2-3 Views Left [...] Signed Date: 11/21/2024 11:34 ET Workstation ID: [id number] Transcribed By: Self Edit Transcribed Date: 11/21/2024 [...] Signed Date: 11/21/2024 11:34 ET Workstation ID: [id number] Transcribed By: Self Edit Transcribed Date: 11/21/2024 11:32 ET Fernando Junior NP IMG XR PROCEDURES * Colonoscopy (08/06/2024) [facility] Colonoscopy NO INTERPRETATION , ABSTRACTED Anatomical Region Laterality Modality Other Historical Provider MD JESÚS SCHUMACHER * Falls Risk Assessment (02/29/2024) [facility] Falls Risk Assessment ABSTRACTED Historical Provider MD JESÚS SCHUMACHER * Annual BMP Blood Test (09/04/2023) [facility] Annual BMP Blood Test ABSTRACTED Historical Provider MD JESÚS SCHUMACHER [facility] Lipid panel (09/04/2023) LDL/HDL Ratio 2 0 - 4 Triglycerides 50 0 - 150 mg/dL Cholesterol 127 0 - 200 mg/dL HDL 61 40 mg/dL LDL Cholesterol 56 0 - 100 mg/dL Blood Venous blood specimen / Unknown Historical Provider LAB BLOOD ORDERAB LES * Hepatitis C Screening (12/26/2013) Pathologist [facility] Hepatitis C Screening ABSTRACTED Historical Provider HEALTH MAINTENANC E from Last 3 Months or Most Recently Relevant to Health Maintenance Care Teams Propagator Laborer Relationship Specialty Start Date End Date Jacquie Fiore MD [address] [place] [phone] PCP - General 04/01/24
== END 2024-11-26 13:52 | disposition home or self-care (01) ==
PROVIDERS: PCP Internal Medicine; Visit Provider Psychiatry & Neurology Neurology
DX: G45.9 Transient cerebral ischemic attack, unspecified (principal); R06.83 Snoring; G47.10 Hypersomnia, unspecified
CPT/HCPCS: 99204; G2211

== ENCOUNTER → 2024-11-26 13:10 | Outpatient (BNVA) | payer MEDICARE, SELFPAY | PROVIDERS: PCP Internal Medicine; Visit Provider Psychiatry & Neurology Neurology | DX: R06.83 Snoring (principal); I10 Essential (primary) hypertension; I48.91 Unspecified atrial fibrillation; G47.10 Hypersomnia, unspecified; Z79.01 Long term (current) use of anticoagulants; Z86.73 Personal history of transient ischemic attack (TIA), and cerebral infarction without residual deficits | CPT/HCPCS: 99202 ==

== ENCOUNTER 2025-01-30 09:33 | Outpatient (AMB) | payer MEDICARE, SELFPAY ==
--- NOTE | 2025-01-30 09:56 | A.OFFVIS_ITS ---
Vital Signs 3 01/30/25 09:57 Height 5 ft 11 in Weight 229 lb BMI 31.9 BP 138/92 H Blood Pressure Location Rt brachial Position Sitting Pulse 65 Pulse Source Pulse Oximeter Pulse Oximetry (%) 100 Oxygen Delivery Method Room Air Intake Visit Reasons: Okay per Paty Intake Note: Patient presents for follow up MRI had a seizure while on vacation. Allergies No Known Allergies Allergy (Verified 01/30/25 10:02) Medication List - Last Reconciled 01/30/25 by ANAND Shaver alprazolam mg PO apixaban 5 mg PO BID ascorbic acid (vitamin C) 1 g PO DAILY aspirin (Adult Aspirin Regimen) 81 mg PO DAILY atorvastatin 80 mg PO DAILY bisacodyl 10 mg PO BEDTIME cholecalciferol (vitamin D3) 25 mcg PO DAILY cyanocobalamin (vitamin B-12) (Vitamin B-12) 1,000 mcg PO DAILY Eliquis (apixaban) 5 mg PO BID NS hydrochlorothiazide 12.5 mg PO DAILY levetiracetam (Keppra) 500 mg PO BID lisinopril 40 mg PO DAILY loratadine 10 mg PO DAILY lorazepam Take one tablet one hour prior to procedure. Repeat 15 minutes before procedure as needed for anxiety metoprolol succinate ER 100 mg PO BID multivitamin 1 tab PO DAILY [polyethylene glycol 236 Take 240 ml by mouth once for 1 dose.] [zinc 50 mg .] HPI Comments Details: 79-year-old male presents for urgent follow-up appointment for new onset seizure activity occurring on 01/26/2025. Patient is accompanied by his , who assist with history. This past Sunday, pt had his 1st ever seizure attack while he was in [place] to see his son play hockey. states pt was sleeping woke-up to the patient making a loud/snoring/breathing sound, and then found pt was unconscious, bleeding from his mouth- had bitten tongue nad lip, his left arm was rigid/wrist was turning in and shaking, his whole body was shaking. They are unsure exactly how long he was unconscious, but state he did open his eyes and was restless/combative once he was brought into the ambulance. They do not believe he lost urinary control. He was brought to a [place] ER, and then transferred to [facility] in [facility]. Per discharge paperwork, pt had a 2nd seizure during EMS transport to [facility]. Pt required sedation and ICU admission, intubation. Neurocritical diagnosis was first-time seizure, suspected to be due to excess alcohol use and sleep deprivation. Inpatient video EEG was abnormal showing postictal encephalopathy with diffuse voltage attenuation and I use rhythmic delta slowing and background slowing, but did not show any epileptic discharges. Inpatient brain MRI showed chronic white matter changes, encephalomalacia, and a 6 mm probable meningioma. Patient was treated in patient with Keppra. Neurology team had considered holding Keppra, however as patient has known alcohol use, has extensive white intracerebral matter changes, and needed to travel back to [place], patient was advised to continue taking Keppra until we evaluated here. Patient was advised to abstain from alcohol use and to avoid driving for 6 months in accordance with [place] law. He was d/c'd home on keppra 1000mg bid. He believes he takes a vit B 6 supplement. He denies any residual effects- though is a bit fatigued. His tongue and lips are still bruised and sore. They are curious if he should continue on the Keppra, driving restrictions, and alcohol restrictions. states that prior to the seizure- his routine was disrupted by the travel, flight, he had not drank as much fluids as usual- so fluids was primarily diet coke, some alcohol- a beer or two (and that day a celebratory shot), and coffee. Notes that he probably had drank less alcohol than usual- does not drink at home, but drinks everyday at his club- [employer] and [employer] and then goes to 2nd club and has 1-2 more drinks. Patient denies any history of similar seizure activity. 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 a couple of TIAs. And since last January, he has had 4 episodes of staring off in a fog for 5 minutes or so, and then he returns to normal baseline. 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 Hypersomnia, persistent Hypersomnia Snoring TIA (transient ischemic attack) Hyperlipidemia CHF (congestive heart failure) Atrial fibrillation HTN (hypertension) Surgical History History of prostate surgery Family History Mother Breast cancer Pancreatic cancer Other Diabetes Social History Housing: House Alcohol intake: current Patient Tobacco Use Status: Never used Tobacco e-Cigarette/Vaping Use: Never Used Second Hand Smoke Exposure: No service: Yes Current occupational status: retired Cognitive needs: No Hearing needs: No Vision needs: Yes (cataracts) Physical Exam Vital Signs: Last Vital Signs Pulse 65 01/30/25 09:57 BP 138/92 H 01/30/25 09:57 Pulse Ox 100 01/30/25 09:57 Oxygen Delivery Method Room Air 01/30/25 09:57 BMI result Body Mass Index 31.9 Const General: cooperative and comfortable Nutritional Appearance: overweight Orientation/consciousness: patient oriented x3 Eyes Pupils: Equal, round and reactive pupils present Neuro Other: Distal tongue ecchymosis General: patient oriented x3, gait normal, moves all extremities and no focal motor deficits Cranial nerves: Yes Facial sensation intact/muscles of mastication intact, Yes Equal, round and reactive pupils present, Yes Normal facial strength present and Yes Midline tongue present Cognition (Neuro): normal cognition Gait exam (Neuro): Normal gait present Motor exam (neuro): 5/5 motor strength present throughout and Normal motor muscle tone present throughout Results Reviewed Results Reviewed: 01/26/2025, labs showed normal creatinine, iCal, LFTs Mild hypernatremia with sodium 147 and hyperkalemia with K5.2, improved upon discharge Initial WBC 14.7, which trended down to 8.5 Initial lactate 14.6, which trended down to 1.7 ETOH undetectable Straight 11/27/2024, CT head without contrast: Moderate presumed chronic small- vessel ischemic changes. Moderate generalized volume. There are small chronic infarcts involving the left lateral temporal lobe, the right frontal operculum and the left cerebellar severe. 01/26/2025, brain MRI with and without contrast: No acute intracranial abnormality 6 mm presumed meningioma along the left orbitofrontal lobe without substantial associated mass effect. Chronic findings including bifrontal encephalomalcia, right grater than left. Patchy and confluent nonspecific Lara you/FLAIR hyperintensities within the cerebral white matter most consistent with moderate chronic microvascular ischemic change. Chronic left cerebellar lacunar infarct. Moderate generalized cerebral atrophy. No hydrocephalus. Normal position of the cerebellar tonsil. Assessment & Plan Assessment & Plan (1) Seizure: Comment: 01/26/2025, witnessed Tonic-clonic grand mal seizure x's 2- likely provoked due to change in alcohol use, dehydration, sleep deprivation due to travel. 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 Discussed that this seizure attack (in which patient had 2 witnessed seizures), was likely provoked due to change in alcohol intake, possible dehydration, sleep deprivation due to travel, thus the seizure is likely an isolated incident. However patient does have risk factor for this recurring, due to significant cerebral white matter changes, chronic microangiopathic changes, encephalomalacia, and history of alcohol use (which is not clear that patient will stopped completely at this point). Additionally, discussed that as patient is on anticoagulant, he would be at risk for significant head injury if he were to have another seizure tagging fall and strike his head. And although there is no known history of seizure, there have been episodes of brief episodes of spacing out. Thus, at this point I would suggest he continue on antiepileptic treatment. I have advise patient to continue on Keppra 1000 mg p.o. b.i.d. for now. I will provide small order for clonazepam ODT 2 mg, to use for seizure activity lasting longer than 2 minutes. If he is currently taking vitamin B6, he may continue to do so. I have advised him to undergo follow-up baseline EEG. Upon review, we could consider 48-72 hour ambulatory EEG Plan for 6 month follow-up brain MRI to follow presumed 6 mm left frontal lobe meningioma. Patient is advised to abstain from alcohol use to minimize risk for provoking future seizures, as well as for his overall cardiovascular health and well- being. 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 Patient's advised to monitor for previously seen spacing out episodes. Patient's asked us to review previous MRI reports from 2017, which we have requested from [facility]. We have kept the copy of patient's most recent brain MRI while in [place] for review if needed. Pt to follow-up in 1-2 months or sooner prn. 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
[2025-01-30 09:57] VITALS: BP 138/92; PULSE 65; O2SAT 100; BMI 31.9
--- OUTSIDE RECORDS SUMMARY | 2025-01-30 10:31 | XMS_ITS | Clinical Summary ---
Author Organization [facility] Address [address] [place] [phone] Phone Care Team Providers Care Dance Studio Manager Name Role Phone Jacquie Fiore MD Primary Care Provider [phone] Allergies No known active allergies Medications atorvastatin (LIPITOR) 80 mg tablet TAKE ONE TABLET BY MOUTH EVERY DAY 90 tablet 1 09/08/2024 Active hydroCHLOROthia zide (MICROZIDE) 12.5 mg capsule TAKE ONE CAPSULE BY MOUTH EVERY DAY 90 capsule 1 09/08/2024 Active lisinopril (PRINIVIL,ZESTR IL) 40 mg tablet TAKE ONE TABLET BY [...] extended release ER tablet Take by mouth. Active loratadine (CLARITIN) 10 mg tablet Take 1 tablet (10 mg total) by mouth 1 (one) time each day. 08/22/2024 Active metoprolol succinate (TOPROL-XL) 100 mg 24 hr tablet Take 2 tablets (200 mg total) by mouth 1 (one) time each day. 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 Last Assessment & [...] Encounters Date Type Department Care Team Description 01/21/2025 11:00 AM EDT Ancillary Procedure [facility] [address] [facility] [address] [place] [phone] Longstanding persistent atrial fibrillation (CMS/HCC); Cerebrovascular accident (CVA), unspecified mechanism (CMS/HCC); Ascending aorta dilation (CMS/HCC); Abnormal echocardiogram; Non-ischemic cardiomyopathy (CMS/HCC) 11/21/2024 11:15 AM EST - 11/21/2024 11:59 PM EST Hospital Encounter [facility] [place] [address] [place] [id number] Pain of left hip Discharge Disposition: Home or Self Care 11/21/2024 11:00 AM EST Office Visit [facility] [place] [address] [place] [phone] Fernando Junior, MELISA Pain of left hip (Primary Dx) 11/12/2024 9:50 AM EST Office Visit [facility] [address] [facility] [address] [place] [address] Raj Alicea MD Longstanding persistent atrial fibrillation (CMS/HCC) (Primary Dx); Cerebrovascular accident (CVA), unspecified mechanism (CMS/HCC); Ascending aorta dilation (CMS/HCC); Abnormal echocardiogram; Non-ischemic cardiomyopathy (CMS/HCC) from Last 3 Months Immunizations Name Administration Dates Next Due DTaP, Unspecified 08/28/2001 H1N1 Inj Preservative Free 11/01/2009 Influenza Quadravalent, MDCK , 0.5ml, with preservative (Flucelvax) 6mo and older 06/18/2016 Influenza trivalent, 0.5mL ( Fluad) 65yo and older 08/12/2023,07/18/2022,06/06/2017 Influenza trivalent, 0.5mL, preservative free (Fluarix; FluLaval; Fluzone) ages 6mo and older (Afluria) 3 years and older 06/19/2020,07/08/2018,07/29/2015,06/12,09/02/2013,07/31/2012,08/10/2011 ,08/11/2010,07/28/2009,08/27/2008,07/29 Influenza, Unspecified 06/18/2016 CARGOBR SARS-CoV-2 COVID-19, mRNA, LNP-S, preservative free 08/29/2022,02/19/2022,08/21/2021,12/29,12/08/2020 [...] Comments Daughter Alive Healthy Father (Age 79) [place], emphys lawrence Maternal Grandfather (Age 80s) O ld age Maternal Grandmother (Age 80s) O ld age Mother (Age 75) diabetes, total knee replacement, breast cancer, CHF Paternal Grandfather (Age 73) [place] Paternal Grandmother Colon c ancer Sister (Age 60) NM Son Alive Healthy x apica l hypertrophi cardiomyopathy and aortic root dilitation Uncle 1 Uncle 2 Alive Lymphoma Social History Tobacco Use Types Packs/Day Years Used Date Smoking Tobacco: Never Smokeless Tobacco: Never Alcohol Use Standard Drinks/Week Comments Yes 14 (1 standard drink = 0.6 oz pu re alcohol) Sex and Gender Information Value Date Recorded Sex Assigned at Not on file Legal Sex Male 11:46 PM EST Gender Identity Not on file Sexual Orientation Not on file Obstetrics History Last Filed Vital Signs Vital Sign Reading Time Taken Comments Blood Pressure 145/90 01/21/2025 12:26 PM EDT Pulse 72 11/21/2024 11:00 AM EST Temperature 36.8 ??C (98.3 ??F) 11/21/2024 11:[address] Respiratory Rate - - Oxygen Saturation 95% 11/21/2024 11:00 AM EST Inhaled Oxygen Concentration - - Weight 106 kg (233 lb) 01/21/2025 12:26 PM EDT Height 177.8 cm (5' 10 ) 01/21/2025 12:26 PM EDT Body Mass Index 33.43 01/21/2025 12:26 PM EDT Plan of Treatment Health Maintenance Due Date Last Done Comments Hepatitis A Vaccines (1 of 2 - Risk 2-dose series) 1964 Depression Screening 10/07/2022 Medicare Annual Wellness Visit 10/07/2022 Social Influencers of Health Screening 10/07/2022 Falls Risk Assessment 02/28/2025 02/29/2024 Hypertension/CHF/CAD Annual BMP Blood Test 01/28/2026 01/28/2025, 01/27/2025, 09/04/2023 DTaP,Tdap,and Td Vaccines (6 - Td or Tdap) 04/11/2028 04/11/2018, 06/18/2016, 04/29/2010, Additional history exists Cholesterol Screening (Lipid Panel) 01/26/2030 01/26/2025, 09/04/2023 Hepatitis C Screening Completed 12/26/2013 Zoster Vaccines Completed 09/28/2020, 06/30, 05/22/2018, Additional history exists RSV Immunization Adult Patients Completed 09/02/2023 Pneumococcal Vaccine: 50+ Years Completed 01/03/2024, 10/28/2015, 10/10/2015, Additional history [...] patient's age to complete this topic Meningococcal B Vacine Aged Out No lo nger eligible based on patient's age to complete this topic RSV Immunization Patients Under 20 months Aged Out No longer eligible based on patient's age to complete this topic Varicella Vaccines Aged Out No longer eligible based on patient's age to complete this topic Procedures Procedure Name Priority Date/Time Associated Diagnosis Comments TRANSTHORACIC ECHOCARDIOGRAM (TTE) COMPLETE W/ CONTRAST Routine 01/21/2025 11:55 AM EDT Longstanding persistent atrial fibrillation (CMS/HCC) Cerebrovascular accident (CVA), unspecified mechanism (CMS/HCC) Ascending aorta dilation (CMS/HCC) Abnormal echocardiogram Non-ischemic cardiomyopathy (CMS/HCC) XR HIP 2-3 VIEWS LEFT STAT 11/21/2024 11:25 AM EST Pain of left hip COLONOSCOPY Routine 08/06/2024 FALLS RISK ASSESSMENT Routine 02/29/2024 ANNUAL BMP BLOOD TEST Routine 09/04/2023 LIPID PANEL Routine 09/04/2023 HEPATITIS C SCREENING Routine 12/26/2013 from Last 3 Months or Most Recently Relevant to Health Maintenance Results * (ABNORMAL) TRANSTHORACIC ECHOCARDIOGRAM (TTE) COMPLETE W/ CONTRAST (01/21/2025 11:55 AM EDT) LV EDV (A2C) 133 mL CV PACS LV EDV (A4C) 135 mL CV PACS LV Diastolic Volume (BP) 135 62 - 150 mL CV PACS LV ESV (A2C) 79 mL CV PACS LV ESV (A4C) 50 mL CV PACS LV Systolic Volume (BP) 63(A) 21 - 61 mL CV PACS IVSD 1.0 0.6 - 1.0 cm CV PACS LVIDD 4.7 4.2 - 5.8 cm CV PACS LVIDS 3.1 2.5 - 4.0 cm CV PACS LVOT Diameter 2.7 cm CV PACS LVOT Mean Sean 0.5 m/s CV PACS LVOT Mean Grad 1 mmHg CV PACS LVOT Mean Grad 1 mmHg CV PACS LVOT Mean Grad 1 mmHg CV PACS LVOT Mean Grad 1 mmHg CV PACS LVOT Mean Grad 1 mmHg CV PACS LVOT Peak VTI 15.0 cm CV PACS LVOT Peak Sean 0.7 m/s CV PACS LVOT Peak Gradient 2 mmHg CV PACS LVPWD 1.1(A) 0.6 - 1.0 cm CV PACS Ejection Fraction (A2C) 41 % CV PACS Ejection Fraction (A4C) 63 % CV PACS Ejection Fraction (BP) 54 % CV PACS LVOT Area 5.7 cm2 CV PACS LVOT Stroke Volume 86 mL CV PACS Left Atrium Minor [place] 8.0 cm CV PACS Left Atrium Major [place] 8.2 cm CV PACS LA Area Sys (A2C) 41 cm2 CV PACS LA Area Sys (A4C) 37 cm2 CV PACS LA Volume (BP) 153 mL CV PACS RA Area 21.5 cm2 CV PACS RA 2D Volume 55 mL CV PACS Aortic Sinus Valsalva 4.1 cm CV PACS Ascending Aorta 4.2 cm CV PACS IVC Proximal 2.7 cm CV PACS IVC Proximal 1.1 cm CV PACS MR PISA Max Velocity 4.6 m/s CV PACS MR Peak Gradient 84 mmHg CV PACS PV Acceleration Time 92 ms CV PACS RV Diastolic Basal Dimension 3.9 2.5 - 4.1 cm CV PACS TAPSE 17 mm CV PACS TR Peak Velocity 3.12 m/s CV PACS TR Peak Gradient 39 mmHg CV PACS Relative Wall Thickness ratio 0.47 CV PACS FS 34 % CV PACS LV Mass 2D 176 g CV PACS LVOT flow 286 mL/s CV PACS BSA 2.28 m2 CV PACS LV Diastolic Volume Index (BP) 61 34 - 74 mL/m2 CV PACS LV Systolic Volume Index (BP) 28 11 - 31 mL/m2 CV PACS LV EDV Index (A4C) 61 mL/m2 CV PACS LV ESV Index (A4C) 22 mL/m2 CV PACS LV EDV Index (A2C) 60 mL/m2 CV PACS LV ESV Index (A2C) 35 mL/m2 CV PACS LA Volume Index (BP) 69 mL/m2 CV PACS LVIDD Index 2.11 cm/m2 CV PACS LVIDS Index 1.39 cm/m2 CV PACS LV Mass Index 2D 79 50 - 102 g/m2 CV PACS LVOT Stroke Index 39 mL/m2 CV PACS RA 2D Volume Index 25 18 - 32 mL/m2 CV PACS Ascending Aorta Index 1.88 cm/m2 CV PACS Right Ventricular Peak Systolic Pressure 86 mmHg CV PACS Est. RA Pressure 47 mmHg CV PACS Anatomical Region Laterality Modality Ultrasound Narrative 01/23/2025 2:03 PM EDT ?Left ventricular internal chamber dimensions are normal. ??Systolic function is at the low end of normal with an ejection fraction of about 55%. ??Questionable area of hypokinesis at the very base of the interventricular septum and the inferior wall. ??This could be normal variant. ??Cannot assess diastolic function. ??Mild LVH. ?Normal RV size and function. ?Severely dilated left atrium moderately dilated right atrium. ?There was a trace of aortic regurgitation. ??There is very mild mitral regurgitation. ??There is mild tricuspid regurgitation. ??The tricuspid gradient was 39 mmHg. ?? IVC is difficult to. ??Visualized. ??It may be slightly dilated. ??The PA systolic pressure may be as high as 47 mmHg. ?The ascending aorta and the aortic root are slightly dilated. ??See values below. ??When compared to December 2023 there is no significant change. The EF was gauged to be slightly lower than but the heart rate was substantially higher and irregular making accurate evaluation of the EF more difficult on that study. Left Ventricle Left ventricle cavity size is normal. There is mild concentric hypertrophy. Systolic function is low normal. The quantitative EF by 2D Bynum biplane is 54%. Unable to assess diastolic function. Right Ventricle Right ventricle cavity appears normal. Systolic function is normal. Left Atrium Left atrium cavity is severely dilated. Right Atrium Right atrium cavity is normal. IVC/SVC Inferior vena cava structure is normal. RA pressures is estimated to be 8 mmHg (IVC diameter >21 mm and decreases >50% during inspiration). Mitral Valve The leaflets are mildly thickened. There is mild annular calcification. There is mild regurgitation with a centrally directed jet. There is no significant stenosis noted. Tricuspid Valve Tricuspid valve structure is normal. There is moderate regurgitation. There is no significant tricuspid valve stenosis. Aortic Valve The aortic valve is trileaflet. The leaflets are not thickened and exhibit normal excursion. There is trace regurgitation. There is no evidence of aortic valve stenosis. Pulmonic Valve The pulmonic valve was not well visualized. There is trace pulmonic valve regurgitation. No significant pulmonary valve stenosis noted. Ascending Aorta The Sinus of Valsalva is (4.1 cm). The ascending aorta is (4.2 cm). Pericardium Pericardium appears normal. There is no pericardial effusion. Study Details Overall the study quality was adequate. The underlying ECG rhythm was atrial fibrillation. Definity contrast was given to enhance imaging. Study was difficult due to: poor endocardial visualization. Wall Scoring Baseline Score Index: 3.00 The following segments are akinetic: basal inferoseptal and basal inferior. Other segments could not be evaluated. us Raj Alicea MD CV ECHO PROCEDURES Final Result * XR Hip 2-3 Views Left (11/21/2024 [...] Signed Date: 11/21/2024 11:34 ET Workstation ID: [id number] Transcribed By: Self Edit Transcribed Date: 11/21/2024 [...] Signed Date: 11/21/2024 11:34 ET Workstation ID: [id number] Transcribed By: Self Edit Transcribed Date: 11/21/2024 11:32 ET Fernando Junior NP IMG XR PROCEDURES Final Resul t * Colonoscopy (08/06/2024) Pathologist [facility] Colonoscopy NO INTERPRETATION , ABSTRACTED Anatomical Region Laterality Modality Other Historical Provider HEALTH MAINTENANCE Final Result * Falls Risk Assessment (02/29/2024) [facility] Falls Risk Assessment ABSTRACTED Historical Provider HEALTH MAINTENANCE Final Result * Annual BMP Blood Test (09/04/2023) [facility] Annual BMP Blood Test ABSTRACTED [facility] Provider HEALTH MAINTENANCE Final Result * Lipid panel (09/04/2023) [facility] LDL/HDL Ratio 2 0 - 4 Triglycerides 50 0 - 150 mg/dL Cholesterol 127 0 - 200 mg/dL HDL 61 >=40 mg/dL LDL Cholesterol 56 0 - 100 mg/dL Blood Venous blood specimen / Unknown Result [facility] Provider LAB BLOOD ORDERABLES Yadira l Result * Hepatitis C Screening (12/26/2013) [facility] Hepatitis C Screening ABSTRACTED [facility] Provider HEALTH MAINTENANCE Final Result from Last 3 Months or Most Recently Relevant to Health Maintenance Insurance MEDICARE [facility] Care Teams Dance Studio Manager Relationship Specialty Start Date End Date Jacquie Fiore MD [facility] - General 04/01/24
== END 2025-01-30 11:02 | disposition home or self-care (01) ==
LOC: HO.HSMS 09:34
PROVIDERS: PCP Internal Medicine; Visit Provider Nurse Practitioner Family
DX: R56.9 Unspecified convulsions (principal); D32.0 Benign neoplasm of cerebral meninges; R90.82 White matter disease, unspecified; I99.9 Unspecified disorder of circulatory system
CPT/HCPCS: 99214; G2211

== ENCOUNTER → 2025-01-30 09:33 | Outpatient (BNVA) | payer MEDICARE, SELFPAY | PROVIDERS: PCP Internal Medicine; Visit Provider Nurse Practitioner Family | DX: R56.9 Unspecified convulsions (principal); D32.0 Benign neoplasm of cerebral meninges; R90.82 White matter disease, unspecified; I99.9 Unspecified disorder of circulatory system | CPT/HCPCS: 99212 ==

== ENCOUNTER 2025-03-19 07:39 | Outpatient (REF) | payer MEDICARE, SELFPAY ==
--- OUTSIDE RECORDS SUMMARY | 2025-03-19 07:42 | XMS_ITS | Clinical Summary ---
Author Organization [address] [facility] Address [address] [place] [address] Phone Care Team Providers Care Quilt Maker Name Role Phone Unavailable Primary Care Provider Unavailabl e Allergies No known active allergies Medications atorvastatin [...] with inhibited sexual excitement Secondary hypercoagulable state ([facility] V24) TIA (transient ischemic attack) 04/26/2024 Overview (09/21/2024): [...] current medical therapies. CVA (cerebral vascular accident) ([facility] V24, C IN/[facility] V28) 04/23/2024 HLD (hyperlipidemia) 04/23/2024 Longstanding persistent atri al fibrillation ([facility] V24, [facility] V28) 04/23/2024 Ascending aorta dilation ([facility] V24) 2 Overview (09/21/2024): Last Assessment & Plan: The [...] & Plan: New orders requested. Non-ischemic cardiomyopathy ([facility] V24, [facility]/ C V28) 07/10/2014 Overview (09/21/2024): Last Assessment & Plan: [...] 4 pounds in one week. Atrial fibrillation (CMS/[facility] V24, [facility] V28) 0 03/30/2011 Overview (09/21/2024): Anticoagulated with apixaban, [id number] score of 4 Rate control strategy CVA [...] Description 01/21/2025 11:00 AM EDT Ancillary Procedure [facility] [address] [facility] [address] [place] [address] Longstanding persistent atrial fibrillation (CMS/HCC V24, CMS/HCC V28); Cerebrovascular accident (CVA), unspecified mechanism (CMS/HCC V24, CMS/HCC V28); Ascending aorta dilation (CMS/HCC V24); Abnormal echocardiogram; Non-ischemic cardiomyopathy (CMS/HCC V24, CMS/HCC V28) from Last 3 Months Immunizations Name Administration Dates Next Due DTaP, Unspecified 08/28/2001 H1N1 Inj Preservative Free 11/01/2009 Influenza Quadravalent, MDCK , 0.5ml, with preservative (Flucelvax) 6mo and older 06/18/2016 Influenza trivalent, 0.5mL ( Fluad) 65yo and older 08/12/2023,07/18/2022,06/06/2017 Influenza trivalent, 0.5mL, preservative free (Fluarix; FluLaval; Fluzone) ages 6mo and older (Afluria) 3 years and older 06/19/2020,07/08/2018,07/29/2015,06/12,09/02/2013,07/31/2012,08/10/2011 ,08/11/2010,07/28/2009,08/27/2008,07/29 Influenza, Unspecified 06/18/2016 [employer] SARS-CoV-2 COVID-19, mRNA, LNP-S, preservative free 08/29/2022,02/19/2022,08/21/2021,12/29,12/08/2020 [...] n with inhibited sexual excitement Prostate cancer ([facility] V24 , [facility] V28) 03/08/2011 DX:Prostate cancer (HCC) Atrial fibrillation ([facility] V24, [facility] V28) 03/30/2011 DX:Atrial fibrillation (HCC) Abnormal echocardiogram DX:Abnor mal echocardiogram; [...] Alive Healthy Father (Age 79) [place], emphys lawrecne Maternal Grandfather (Age 80s) O ld age [...] 10/07/2022 Social Influencers of Health Screening 10/07/2022 COVID-19 Vaccine (8 - Pfizer risk season) 2025 07/30/2024, 07/26/2023, 08/29/2022, Additional history exists Falls Risk Assessment 02/28/2025 02/29/2024 Hypertension/CHF/CAD Annual [...] Completed 01/03/2024, 10/28/2015, 10/10/2015, Additional history exists Influenza Vaccine Completed 07/30/2024, [...] age to complete this topic Meningococcal B Vaccine Aged Out No l onger eligible based on patient's age to complete [...] 11:55 AM EDT Longstanding persistent atrial fibrillation (CMS/HCC V24, CMS/HCC V28) Cerebrovascular accident (CVA), unspecified mechanism (CMS/HCC V24, CMS/HCC V28) Ascending aorta dilation (CMS/HCC V24) Abnormal echocardiogram Non-ischemic cardiomyopathy (CMS/HCC V24, CMS/HCC V28) COLONOSCOPY Routine 08/06/2024 FALLS RISK ASSESSMENT Routine [...] 86 mL CV PACS Left [facility] [place] 8.0 cm CV PACS Left [facility] [place] 8.2 cm CV PACS [place] Area Sys [...] inferior. Other segments could not be evaluated. Result [facility] Raj Alicea MD CV ECHO PROCEDURES Final Result * Colonoscopy (08/06/2024) [facility] Colonoscopy NO INTERPRETATION , ABSTRACTED Anatomical Region Laterality Modality Other Result [facility] HEALTH MAINTENANCE Final Result * Falls Risk Assessment (02/29/2024) [facility] Falls Risk Assessment ABSTRACTED Result [facility] HEALTH MAINTENANCE Final Result * Annual BMP Blood Test (09/04/2023) [facility] Annual BMP Blood Test ABSTRACTED Result [facility] HEALTH MAINTENANCE Final Result * Lipid panel (09/04/2023) [facility] LDL/HDL Ratio 2 0 - 4 Triglycerides 50 0 - 150 mg/dL Cholesterol 127 0 - 200 mg/dL HDL 61 >=40 mg/dL LDL Cholesterol 56 0 - 100 mg/dL Blood Venous blood specimen / Unknown Result [facility] Provider LAB BLOOD ORDERABLES Yadira l Result * Hepatitis C Screening (12/26/2013) [facility] Hepatitis C Screening ABSTRACTED Result [facility] HEALTH MAINTENANCE Final Result from Last 3 Months or Most Recently Relevant to Health Maintenance Insurance MEDICARE [facility] [place]
--- NOTE | 2025-03-19 07:43 | EEG_ITS ---
This is a 16-channel EEG with an EKG lead. The patient is reported awake during the tracing. Background EEG rhythm is 10-16 hertz low to medium amplitude posteriorly and lower amplitude fast anteriorly. Photic stimulation does not produce any significant abnormality. Hyperventilation is not performed. Cardiac lead does not reveal any significant abnormality. No sharp wave spikes or paroxysmal tendency noted. IMPRESSION: No significant abnormality noted on this EEG. MD ZANE Shay/SAMEERA / [phone]
== END 2025-03-19 07:40 | disposition home or self-care (01) ==
LOC: HO.NEURO 07:39
PROVIDERS: PCP Internal Medicine; Visit Provider Nurse Practitioner Family
DX: R56.9 Unspecified convulsions (principal)
CPT/HCPCS: 95816

== ENCOUNTER 2025-03-26 07:21 | Outpatient (AMB) | payer MEDICARE, SELFPAY ==
--- NOTE | 2025-03-26 07:37 | MHC.OFFVIS ---
Vital Signs 03/26/25 07:38 Height 5 ft 11 in Weight 231 lb 4 oz BMI 32.2 BP 126/86 Blood Pressure Location Rt brachial Position Sitting Pulse 82 Pulse Source Pulse Oximeter Pulse Oximetry (%) 96 Oxygen Delivery Method Room Air Intake Visit Reasons: 1 mnth f/u Intake Note: Patient presents 1 month follow up for seizures. patient states feels great and working in the yard. Allergies No Known Allergies Allergy (Verified 03/26/25 07:39) Medication List - Last Reconciled 03/26/25 by ANAND Shaver alprazolam mg PO apixaban 5 mg PO BID ascorbic acid (vitamin C) 1 g PO DAILY aspirin (Adult Aspirin Regimen) 81 mg PO DAILY atorvastatin 80 mg PO DAILY bisacodyl 10 mg PO BEDTIME cholecalciferol (vitamin D3) 25 mcg PO DAILY clonazepam 2 mg PO DAILY PRN cyanocobalamin (vitamin B-12) (Vitamin B-12) 1,000 mcg PO DAILY Eliquis (apixaban) 5 mg PO BID NS hydrochlorothiazide 12.5 mg PO DAILY levetiracetam (Keppra) 1,000 mg PO Q12H 2 weeks lisinopril 40 mg PO DAILY loratadine 10 mg PO DAILY lorazepam Take one tablet one hour prior to procedure. Repeat 15 minutes before procedure as needed for anxiety metoprolol succinate ER 100 mg PO BID multivitamin 1 tab PO DAILY [polyethylene glycol 236 Take 240 ml by mouth once for 1 dose.] [zinc 50 mg .] HPI Comments Details: 79-yr-old male presents for follow-up visit s/p seizure. patient is accompanied by his . Patient denies any significant interval medical history changes. Baseline EEG was unremarkable. Patient denies any interval seizure activity. denies any spacing out episodes. He states he is tolerating Keppra well without any adverse effects. He does still take vitamin B6. He states he is eating well, taking fluids regularly. He states he has stopped drinking alcohol completely, now when he goes to the social club or the golf course with his friend, he drinks a soda or a non-alcoholic beer. He states he is sleeping well BP is normotensive today. He asks if he can start driving again around town. Previous HPI, 01/30/25: 79-year-old male presents for urgent follow-up appointment for new onset seizure activity occurring on 01/26/2025. Patient is accompanied by his , who assist with history. This past Sunday, pt had his 1st ever seizure attack while he was in [place] to see his son play hockey. states pt was sleeping woke-up to the patient making a loud/snoring/breathing sound, and then found pt was unconscious, bleeding from his mouth- had bitten tongue nad lip, his left arm was rigid/wrist was turning in and shaking, his whole body was shaking. They are unsure exactly how long he was unconscious, but state he did open his eyes and was restless/combative once he was brought into the ambulance. They do not believe he lost urinary control. He was brought to a [place] ER, and then transferred to [facility] in [facility]. Per discharge paperwork, pt had a 2nd seizure during EMS transport to [facility]. Pt required sedation and ICU admission, intubation. Neurocritical diagnosis was first-time seizure, suspected to be due to excess alcohol use and sleep deprivation. Inpatient video EEG was abnormal showing postictal encephalopathy with diffuse voltage attenuation and I use rhythmic delta slowing and background slowing, but did not show any epileptic discharges. Inpatient brain MRI showed chronic white matter changes, encephalomalacia, and a 6 mm probable meningioma. Patient was treated in patient with Keppra. Neurology team had considered holding Keppra, however as patient has known alcohol use, has extensive white intracerebral matter changes, and needed to travel back to [place], patient was advised to continue taking Keppra until we evaluated here. Patient was advised to abstain from alcohol use and to avoid driving for 6 months in accordance with [place] law. He was d/c'd home on keppra 1000mg bid. He believes he takes a vit B 6 supplement. He denies any residual effects- though is a bit fatigued. His tongue and lips are still bruised and sore. They are curious if he should continue on the Keppra, driving restrictions, and alcohol restrictions. states that prior to the seizure- his routine was disrupted by the travel, flight, he had not drank as much fluids as usual- so fluids was primarily diet coke, some alcohol- a beer or two (and that day a celebratory shot), and coffee. Notes that he probably had drank less alcohol than usual- does not drink at home, but drinks everyday at his club- [employer] and [place] and then goes to 2nd club and has 1-2 more drinks. Patient denies any history of similar seizure activity. 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 a couple of TIAs. And since last January, he has had 4 episodes of staring off in a fog for 5 minutes or so, and then he returns to normal baseline. 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, persistent Hypersomnia Snoring TIA (transient ischemic attack) Hyperlipidemia CHF (congestive heart failure) Atrial fibrillation HTN (hypertension) Surgical History History of prostate surgery Family History Mother Breast cancer Pancreatic cancer Other Diabetes Social History Housing: House Alcohol intake: current Patient Tobacco Use Status: Never used Tobacco e-Cigarette/Vaping Use: Never Used Second Hand Smoke Exposure: No service: Yes Current occupational status: retired Cognitive needs: No Hearing needs: No Vision needs: Yes (cataracts) Physical Exam Vital Signs: Last Vital Signs Pulse 82 03/26/25 07:38 BP 126/86 03/26/25 07:38 Pulse Ox 96 03/26/25 07:38 Oxygen Delivery Method Room Air 03/26/25 07:38 BMI result Body Mass Index 32.2 Const General: cooperative and comfortable Nutritional Appearance: overweight Orientation/consciousness: patient oriented x3 Neuro General: patient oriented x3, gait normal and moves all extremities Cranial nerves: Yes CN's II-XII intact bilaterally Cognition (Neuro): normal cognition Gait exam (Neuro): Normal gait present Motor exam (neuro): 5/5 motor strength present throughout and Normal motor muscle tone present throughout Assessment & Plan Assessment & Plan (1) Seizure: Comment: 01/26/2025, witnessed Tonic-clonic grand mal seizure x's 2- likely provoked due to change in alcohol use, dehydration, sleep deprivation due to travel. 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 Patient does have risk factor for this recurring, due to significant cerebral white matter changes, chronic microangiopathic changes, encephalomalacia, and history of alcohol use (which is not clear that patient will stopped completely at this point). Additionally, discussed that as patient is on anticoagulant, he would be at risk for significant head injury if he were to have another seizure, which could increase his risk for falling and striking his head. Continue Keppra 1000 mg p.o. b.i.d. for now. Continue clonazepam ODT 2 mg, to use for seizure activity lasting longer than 2 minutes. Continue vitamin B6. Reviewed baseline EEG- unremarkable. Patient advised to undergo 72 hour ambulatory EEG Plan for 6 month follow-up brain MRI to follow presumed 6 mm left frontal lobe meningioma and white matter changes- Patient request open MRI with premedication due to claustrophobia. Due in June of 2025. Continue to abstain from alcohol use to minimize risk for provoking future seizures, as well as for his overall cardiovascular health and well-being. 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 Reviewed [facility] [place] requirements stating that a person should not drive or operate a motor vehicle for at least 6 months following any seizure activity. Will follow-up upon review of above and patient to follow-up in clinic in 3-4 months or sooner prn. Orders: Orders MR head/brain wo/w con 06/29/25 D32.0 - Benign neoplasm of cerebral meninges, I99.9 - Unspecified disorder of circulatory system, R56.9 - Unspecified convulsions, R90.82 - White matter disease, unspecified EEG ambulatory Today I99.9 - Unspecified disorder of circulatory system, R56.9 - Unspecified convulsions, R90.82 - White matter disease, unspecified Medications: New alprazolam (1 - 2 x 0.25 mg) 0.25 - 0.5 mg 30 minutes prior to MRI, may repeat up to 0.5mg x's 1; (max dose 1mg/day). 1 day 2 tabs 0RF alprazolam 0.25 - 0.5 mg 30 minutes prior to MRI, may repeat up to 0.5mg x's 1; (max dose 1mg/day). 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
[2025-03-26 07:38] VITALS: BP 126/86; PULSE 82; O2SAT 96; BMI 32.2
== END 2025-03-26 08:15 | disposition home or self-care (01) ==
LOC: HO.HSMS 07:22
PROVIDERS: PCP Internal Medicine; Visit Provider Nurse Practitioner Family
DX: R56.9 Unspecified convulsions (principal); R90.82 White matter disease, unspecified; I99.9 Unspecified disorder of circulatory system; D32.0 Benign neoplasm of cerebral meninges
CPT/HCPCS: 99214

== ENCOUNTER → 2025-03-26 07:21 | Outpatient (BNVA) | payer MEDICARE, SELFPAY | PROVIDERS: PCP Internal Medicine; Visit Provider Nurse Practitioner Family | DX: R56.9 Unspecified convulsions (principal); R90.82 White matter disease, unspecified; I99.9 Unspecified disorder of circulatory system; D32.0 Benign neoplasm of cerebral meninges | CPT/HCPCS: 99212 ==

== ENCOUNTER 2025-04-27 09:07 | Outpatient (AMB) | payer MEDICARE, SELFPAY ==
--- NOTE | 2025-04-27 09:11 | A.OFFVIS_ITS ---
Intake Vital Signs 04/27/25 09:21 Height 5 ft 11 in Weight 230 lb 8 oz BMI 32.1 BP 126/82 Blood Pressure Location Rt brachial Position Sitting Respiration 14 Pulse 72 Pulse Source Pulse Oximeter Temp 98.2 F Temp Source Oral Pulse Oximetry (%) 97 Oxygen Delivery Method Room Air Intake Visit Reasons: Annual Wellness Intake Note: Medicare wellness visit Trust Mail Clerk Required: No Allergies No Known Allergies Allergy (Verified 03/26/25 07:39) Medication List - Last Reconciled 04/27/25 by Devorah Francisco MD alprazolam 0.25 - 0.5 mg 30 minutes prior to MRI, may repeat up to 0.5mg x's 1; (max dose 1mg/day). 1 day apixaban 5 mg PO BID ascorbic acid (vitamin C) 1 g PO DAILY aspirin (Adult Aspirin Regimen) 81 mg PO DAILY atorvastatin 80 mg PO DAILY bisacodyl 10 mg PO BEDTIME cholecalciferol (vitamin D3) 25 mcg PO DAILY clonazepam 2 mg PO DAILY PRN cyanocobalamin (vitamin B-12) (Vitamin B-12) 1,000 mcg PO DAILY Eliquis (apixaban) 5 mg PO BID NS hydrochlorothiazide 12.5 mg PO DAILY levetiracetam (Keppra) 1,000 mg PO Q12H 90 days lisinopril 40 mg PO DAILY loratadine 10 mg PO DAILY lorazepam Take one tablet one hour prior to procedure. Repeat 15 minutes before procedure as needed for anxiety metoprolol succinate ER 100 mg PO BID multivitamin 1 tab PO DAILY [polyethylene glycol 236 Take 240 ml by mouth once for 1 dose.] triamcinolone acetonide 0.1% 1 appl topical BID [zinc 50 mg .] HPI HPI Comments History of Present Illness Details The patient is a 78 year old male with a past medical history of CHF, atrial fibrillation, htn, hld, CVA, TIAs, seizure presenting for [facility] CV: Follows with [facility]iology. On toprol 100 bid, eliquis 5mg twice daily hctz 12.5mg daily, lipitor 80mg daily, lisinopril 40mg daily. Denies chest pain, shortness of breath Allergies: Continues on claritin as needed. TAkes zinc, b12 1000mg daily, vitamin C, vitamin D, MV Hospitalized in December for seizure. History of CVA, TIAs. Following with neurology. On keppra. Upcoming multiple day EEG. MRI completed Colonoscopy 07/2024-. Told no need to repeat but always has polyps so ?5 years. [facility] eye ROS CONSTITUTIONAL: Denies weight loss, fever and chills. HEENT: Denies changes in vision and hearing. RESPIRATORY: Denies SOB and cough. CV: Denies palpitations and CP GI: Denies abdominal pain, nausea, vomiting and diarrhea. : Denies dysuria and urinary frequency. MSK: Denies new myalgia and joint pain. SKIN: Denies rash and pruritus. NEUROLOGICAL: Denies headache PSYCHIATRIC: Denies recent changes in mood. PHYSICAL EXAM: GENERAL: Alert and oriented x 3. NAD EYES: EOMI. Anicteric. HENT: Moist mucous membranes. No scleral icterus. No cervical lymphadenopathy. LUNGS: Clear to auscultation bilaterally. CARDIOVASCULAR: Regular rate and rhythm. No murmur. No JVD. ABDOMEN: Soft, non-tender +bs EXTREMITIES: No edema. Non-tender. SKIN: multiple nevi NEUROLOGIC: No focal neurological deficits. CN II-XII grossly intact PSYCHIATRIC: Cooperative. 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, persistent Hypersomnia Snoring TIA (transient ischemic attack) Hyperlipidemia CHF (congestive heart failure) Atrial fibrillation HTN (hypertension) Surgical History History of prostate surgery Family History Mother Breast cancer Pancreatic cancer Other Diabetes Social History Housing: House Alcohol intake: current Patient Tobacco Use Status: Never used Tobacco e-Cigarette/Vaping Use: Never Used Second Hand Smoke Exposure: No Use of substances other than those prescribed or required for medical reasons: No service: Yes Current occupational status: retired Cognitive needs: No Hearing needs: No Vision needs: Yes (cataracts) Questionnaire Medicare Wellness Checkup [age] What gender do you identify with?: male During the past 4 weeks, how much have you been bothered by emotional problems such as feeling anxious, depressed, irritable, sad or downhearted, and blue?: moderately During the past 4 weeks, has your physical & emotional health limited your social activities with family, friends, neighbors, or groups?: quite a bit During the past 4 weeks, how much bodily pain have you generally had?: mild pain During the past 4 weeks, was someone available to help you if you needed & wanted help?: yes, as much as I wanted During the past 4 weeks, what was the hardest physical activity you could do for at least 2 minutes?: moderate Can you get to places out of walking distance without help? (For eg., can you travel alone on buses, taxis or drive your car?): Yes Can you go shopping for groceries or clothes without someone's help?: Yes Can you prepare your own meals?: Yes Can you do your housework without help?: Yes Because of any health problems, do you need the help of another person with your personal care needs such as eating, bathing, dressing or getting around the house?: Yes Can you handle your own money without help?: Yes During the past 4 weeks, how would you rate your health in general?: fair During the past 4 weeks how have things been going for you?: good & bad parts about equal Are you having difficulties driving your car?: no Do you always fasten your seat belt when you are in a car?: yes, usually During past 4 weeks, have you been bothered by the following: never: Falling or dizzy when standing up, Sexual problems?, Trouble eating well?, Teeth or denture problems? and Problems using the telephone? and often: Tiredness or fatigue? Have you fallen 2 or more times in the past year?: Yes Are you afraid of falling?: No Are you a smoker?: no During the past 4 weeks, how many drinks of wine, beer, or other alcoholic beverages did you have?: no alcohol at all Do you exercise for about 20 minutes 3 or more times a week?: yes, most of the time Have you been given information to help with the following?: yes: Keeping track of your medications? and no: Hazards in your house that might hurt you? How often do you have trouble taking medicines the way you have been told to take them?: I always take medicine as prescribed How confident are you that you can control & manage most of your health problems?: somewhat confident What is your race?: White Mini Mental State Exam (MMSE) Orientation What is the (year) (season) (date) (day) (month)?: year (2024), season (summer), date (04/27/2025), day and month Where are we (state) (county) (town or city) (hospital) (floor)?: state ([place]), county ([place]), town or city ([place]), hospital/clinic (clinic) and floor (first) Registration Name of 3 unrelated objects clearly and slowly, then ask patient to repeat all 3 of them. (1st repeat determines score. Make sure they can repeat all three): object 1 (ball), object 2 (flag) and object 3 (tree) Attention & Calculation (CHOOSE ONE) Spell WORLD backwards (DLROW): 2 letters Recall Ask patient to repeat the 3 items from question #3.: object 1 (tree) Language Show patient a wristwatch & ask what it is. Repeat for pencil.: watch Ask the patient to repeat the phrase 'No ifs, ands, or buts' after you.: correct Ask the patient to 'take a piece of paper with their right hand' 'fold paper in half' 'place paper on floor': take paper in right hand, fold paper in half and place paper on floor Print the sentence 'CLOSE YOUR EYES' on a piece. If patient actually closes eyes then score.: followed written direction Give patient a blank piece of paper & ask to write a sentence. Score if it contains a noun & verb.: sentence contains subject and verb Ask patient to copy figure of intersecting pentagons exactly. Score if all 10 angles & 2 intersects are included.: all 10 angles present & 2 are intersected Score Score: 24 Activity of Daily Living Bathing - sponge bath, tub bath or shower: receives no assistance (gets in/out by self, if usual bathing means Dressing - getting clothes from closets & drawers, including inner/outer garments & fasteners.: gets clothes & gets completely dressed without help Toileting - going to the 'toilet room' for urine/bowel elimination & cleaning self/arranging clothes: goes to toilet room, cleans self, arranges clothes without help Transfer: moves in & out of bed and chair without help (may use support object) Continence: controls urination/bowel movements completely by self Total Score: 0 Information obtained from: patient Using telephone: independent Traveling: independent Shopping: independent Preparing meals: independent Housework: independent Taking medicine: independent Managing money: independent PHQ-9 Over the last 2 weeks, how often have you been bothered by any of the following problems? 1. Little interest or pleasure in doing things: not at all 2. Feeling down, depressed, or hopeless: several days 3. Trouble falling or staying asleep, or sleeping too much: not at all 4. Feeling tired or having little energy: not at all 5. Poor appetite or overeating: not at all 6. Feeling bad about yourself - or that you are a failure or have let yourself or your family down: not at all 7. Trouble concentrating on things, such as reading the newspaper or watching television: not at all 8. Moving or speaking so slowly that other people could have noticed. Or the opposite - being so fidgety or restless that you have been moving around a lot more than usual: not at all 9. Thoughts that you would be better off or of hurting yourself in some way: not at all Total score: 1 Depression Screening Interpretation: Negative Depression Screening Done: Yes 77090 - PHQ-9 Billing: Yes Source: Developed by Drs. Rafy Nogueira, Brittney Sam, Hill Garza and colleagues, with an educational anselmo from [employer]. Physical Exam Vital Signs: Last Vital Signs Temp 98.2 F 04/27/25 09:21 Pulse 72 04/27/25 09:21 Resp 14 04/27/25 09:21 BP 126/82 04/27/25 09:21 Pulse Ox 97 04/27/25 09:21 Oxygen Delivery Method Room Air 04/27/25 09:21 BMI result Body Mass Index 32.1 Assessment & Plan Assessment & Plan (1) Medicare annual wellness visit, subsequent: Code(s): Z00.00 - Encounter for general adult medical examination without abnormal findings (2) HTN (hypertension): Code(s): I10 - Essential (primary) hypertension Qualifiers: Hypertension type: primary hypertension Qualified Code(s): I10 - Essential (primary) hypertension (3) CHF (congestive heart failure): Code(s): I50.9 - Heart failure, unspecified Qualifiers: Heart failure type: unspecified Heart failure chronicity: unspecified Qualified Code(s): I50.9 - Heart failure, unspecified (4) Atrial fibrillation: Code(s): I48.91 - Unspecified atrial fibrillation Qualifiers: Atrial fibrillation type: unspecified Qualified Code(s): I48.91 - Unspecified atrial fibrillation Plan MW HRA reviewed CV-follows with cardiology. bp controlled Seizure-continue neurology follow up Labs ordered Referral to dermatology for skin check Orders: Orders Comprehensive Met. Panel Today E78.5 - Hyperlipidemia, unspecified, I10 - Essential (primary) hypertension, I50.9 - Heart failure, unspecified Complete Blood Count Auto Diff Today E78.5 - Hyperlipidemia, unspecified, I10 - Essential (primary) hypertension, I50.9 - Heart failure, unspecified Lipid Panel Today E78.5 - Hyperlipidemia, unspecified, I10 - Essential (primary) hypertension, I50.9 - Heart failure, unspecified Hemoglobin A1c Today E78.5 - Hyperlipidemia, unspecified, I10 - Essential (primary) hypertension, I50.9 - Heart failure, unspecified Referrals Dermatology Referral D22.9 - Melanocytic nevi, unspecified Medications: New triamcinolone acetonide 0.1% 1 appl topical BID 80 grams 3RF Quality Reporting (2019) Depression/Bipolar (159/160/161/177) PHQ-9: Total score: 1 Coding Level of Care Code Medicare Subsequent (G0439) Diagnoses Medicare annual wellness visit, subsequent Z00.00 Primary hypertension I10 Hypertension type: primary hypertension Congestive heart failure, unspecified HF chronicity, unspecified heart failure type I50.9 Heart failure type: unspecified Heart failure chronicity: unspecified Atrial fibrillation, unspecified type I48.91 Atrial fibrillation type: unspecified Additional Codes PHQ-9 - 26202 - PHQ-9 Billing: Yes ([id number])
[2025-04-27 09:21] VITALS: BP 126/82; PULSE 72; RESP 14; TEMP 36.8; O2SAT 97; BMI 32.1
--- OUTSIDE RECORDS SUMMARY | 2025-04-27 09:27 | XMS_ITS | Clinical Summary ---
Author Organization [address] [facility] Address [address] [place] [address] Phone Care Team Providers Care Front Services Agent Name Role Phone Unavailable Primary Care Provider [...] with inhibited sexual excitement Secondary hypercoagulable state ([facility] V24) TIA (transient ischemic attack) 04/26/2024 Overview [...] current medical therapies. CVA (cerebral vascular accident) ([facility] V24, C RI/[facility] V28) 04/23/2024 HLD (hyperlipidemia) 04/23/2024 Longstanding persistent atri al fibrillation ([facility] V24, [facility] V28) 04/23/2024 Ascending aorta dilation ([facility] V24) 2 Overview (09/21/2024): Last Assessment & [...] & Plan: New orders requested. Non-ischemic cardiomyopathy ([facility] V24, [facility]/ C V28) 07/10/2014 Overview (09/21/2024): Last Assessment [...] 4 pounds in one week. Atrial fibrillation (CMS/[facility] V24, [facility] V28) 0 03/30/2011 Overview (09/21/2024): Anticoagulated with apixaban, [id number] score of 4 Rate control strategy CVA [...] electrolytes stable on most recent check 04/06/2024. Immunizations Name Administration Dates Next Due DTaP, Unspecified 08/28/2001 H1N1 Inj Preservative Free 11/01/2009 Influenza Quadravalent, MDCK , 0.5ml, with preservative (Flucelvax) 6mo and older 06/18/2016 Influenza trivalent, 0.5mL ( Fluad) 65yo and older 08/12/2023,07/18/2022,06/06/2017 Influenza trivalent, 0.5mL, preservative free (Fluarix; FluLaval; Fluzone) ages 6mo and older (Afluria) 3 years and older 06/19/2020,07/08/2018,07/29/2015,06/12,09/02/2013,07/31/2012,08/10/2011 ,08/11/2010,07/28/2009,08/27/2008,07/29 Influenza, Unspecified 06/18/2016 [place] SARS-CoV-2 COVID-19, mRNA, LNP-S, preservative free 08/29/2022,02/19/2022,08/21/2021,12/29,12/08/2020 [...] n with inhibited sexual excitement Prostate cancer (CMS/HCC V24 , CMS/HCC V28) 03/08/2011 DX:Prostate cancer (HCC) Atrial fibrillation (CMS/HCC V24, CMS/HCC V28) 03/30/2011 DX:Atrial fibrillation (HCC) Abnormal echocardiogram [...] 72 11/21/2024 11:00 AM EST Temperature 36.8 C (98.3 F) 11/21/2024 11:00 AM EST Respiratory Rate - - Oxygen Saturation 95% [...] Procedure Name Priority Date/Time Associated Diagnosis Comments COLONOSCOPY Routine 08/06/2024 FALLS RISK ASSESSMENT Routine 02/29/2024 ANNUAL BMP BLOOD TEST Routine 09/04/2023 LIPID PANEL Routine 09/04/2023 HEPATITIS C SCREENING Routine 12/26/2013 from Last 3 Months or Most Recently Relevant to Health Maintenance Results * Colonoscopy (08/06/2024) Pathologist [facility] Colonoscopy NO INTERPRETATION , ABSTRACTED Anatomical Region Laterality Modality Other [facility] Provider HEALTH MAINTENANCE Final Result * Falls Risk Assessment (02/29/2024) [facility] Falls Risk Assessment ABSTRACTED [facility] Provider HEALTH MAINTENANCE Final Result * Annual BMP Blood Test (09/04/2023) Pathologist [facility] Annual BMP Blood Test ABSTRACTED [facility] Provider HEALTH MAINTENANCE Final Result * Lipid panel (09/04/2023) [facility] LDL/HDL Ratio 2 0 - 4 Triglycerides 50 0 - 150 mg/dL Cholesterol 127 0 - 200 mg/dL HDL 61 >=40 mg/dL LDL Cholesterol 56 0 - 100 mg/dL Blood Venous blood specimen / Unknown Result [facility] Provider LAB BLOOD ORDERABLES Yadira l Result * Hepatitis C Screening (12/26/2013) Pathologist [facility] Hepatitis C Screening ABSTRACTED [facility] Provider HEALTH MAINTENANCE Final Result from Last 3 Months or Most Recently Relevant to Health Maintenance Insurance MEDICARE [facility]
== END 2025-04-27 10:07 | disposition home or self-care (01) ==
LOC: HO.HMCFM 09:08
PROVIDERS: PCP Internal Medicine; Visit Provider Internal Medicine
DX: Z00.00 Encounter for general adult medical examination without abnormal findings (principal); I11.0 Hypertensive heart disease with heart failure; I50.9 Heart failure, unspecified; I48.91 Unspecified atrial fibrillation

== ENCOUNTER → 2025-04-27 09:07 | Outpatient (BNVA) | payer MEDICARE, SELFPAY | PROVIDERS: PCP Internal Medicine; Visit Provider Internal Medicine | DX: Z00.00 Encounter for general adult medical examination without abnormal findings (principal); I11.0 Hypertensive heart disease with heart failure; I50.9 Heart failure, unspecified; I48.91 Unspecified atrial fibrillation; Z86.73 Personal history of transient ischemic attack (TIA), and cerebral infarction without residual deficits; Z79.01 Long term (current) use of anticoagulants; Z79.899 Other long term (current) drug therapy; Z13.30 Encounter for screening examination for mental health and behavioral disorders, unspecified | CPT/HCPCS: 96127 ==

== ENCOUNTER 2025-04-27 10:14 | Outpatient (REF) | payer MEDICARE, SELFPAY ==
[2025-04-27 14:40] LABS: MANUAL DIFF FLAG NO
[2025-04-27 14:50] LABS: Basophils Percent Auto 0.6 % (0-2); Eosinophils Percent Auto 0.3 % (0-4); Hematocrit 40.7 % (42.0-52.0); Hemoglobin 13.7 g/dl (14.0-18.0); Imm Gran Abs Auto 0.03 X10*3/uL (0.00-0.03); Imm Gran Pct Auto 0.4 % (0.0-0.4); Lymphocytes Absolute Auto 1.5 X10*3/uL (1.2-4.9); Lymphocytes Percent Auto 20.6 % (20-40); Mean Corpuscular HGB Conc 33.7 g/dl (31.0-36.0); Mean Corpuscular Hemoglobin 29.9 pg (27.0-33.0); Mean Corpuscular Volume 88.9 fL (80.0-98.0); Mean Platelet Volume 10.9 fL (9.4-12.4); Monocytes Absolute Auto 0.8 X10*3/uL (0.1-1.2); Monocytes Percent Auto 10.6 % (2-11); Neutrophils Absolute Auto 4.9 x10*3/uL (2.0-8.3); Neutrophils Percent Auto 67.5 % (45-73); Platelet Count 192 X10*3/uL (160-400); Red Blood Count 4.58 X10*6/uL (4.60-5.80); Red Cell Distribution Width 14.1 % (11.0-16.0); White Blood Count 7.3 X10*3/uL (4.8-10.8)
[2025-04-27 14:56] LABS: Estimated Average Glucose 114 mg/dL; Hemoglobin A1c % 5.6 % (<6.0); Total Hemoglobin (HGBA1C) 3543.5086 umol/L
[2025-04-27 15:03] LABS: Alanine Aminotransferase 30 U/L (0-40); Albumin Level 3.9 g/dL (3.5-5.0); Alkaline Phosphatase 83 U/L (39-117); Anion Gap 10 (12-20); Aspartate Amino Transferase 32 U/L (5-37); Bilirubin Total 0.7 mg/dL (0.0-1.0); Blood Urea Nitrogen 12 mg/dL (9-16); Calcium 8.9 mg/dL (8.4-10.2); Carbon Dioxide 27 mmol/L (22-29); Chloride 107 mmol/L (96-108); Cholesterol 125 mg/dL (<200); Estimated Glomerular Filt Rate > 60; Glucose Random 79 mg/dL (60-115); HDL Cholesterol 42 mg/dL (>40); LDL Cholesterol Calculated 71 mg/dL (<100); Potassium 4.3 mmol/L (3.3-5.1); Sodium 140 mmol/L (135-145); Total Protein 6.7 g/dL (6.5-8.0); Triglycerides 61 mg/dL (<150)
== END 2025-04-27 10:15 | disposition home or self-care (01) ==
LOC: HO.WFDLDS 10:14
PROVIDERS: Visit Provider Internal Medicine
DX: I10 Essential (primary) hypertension (principal); I50.9 Heart failure, unspecified; E78.5 Hyperlipidemia, unspecified
CPT/HCPCS: 36415; 80053; 80061; 83036; 85025

== ENCOUNTER 2025-07-02 09:19 | Outpatient (REF) | payer MEDICARE, SELFPAY ==
[2025-07-02 14:29] LABS: Alanine Aminotransferase 23 U/L (0-40); Albumin Level 3.9 g/dL (3.5-5.0); Alkaline Phosphatase 97 U/L (39-117); Anion Gap 10 (12-20); Aspartate Amino Transferase 55 U/L (5-37); Blood Urea Nitrogen 10 mg/dL (9-16); Calcium 9.0 mg/dL (8.4-10.2); Carbon Dioxide 28 mmol/L (22-29); Chloride 105 mmol/L (96-108); Estimated Glomerular Filt Rate > 60; Magnesium 1.9 mg/dL (1.6-2.6); Potassium 5.0 mmol/L (3.3-5.1); Sodium 138 mmol/L (135-145); Total Protein 6.8 g/dL (6.5-8.0)
[2025-07-05 02:38] LABS: Levetiracetam Keppra 37.9 mcg/mL (6.0-46.0)
== END 2025-07-02 09:20 | disposition home or self-care (01) ==
LOC: HO.WFDLDS 09:19
PROVIDERS: PCP Internal Medicine; Visit Provider Internal Medicine
DX: R56.9 Unspecified convulsions (principal); Z79.899 Other long term (current) drug therapy
CPT/HCPCS: 36415; 80053; 80177; 83735; 99212

== ENCOUNTER 2025-07-02 09:19 | Outpatient (AMB) | payer MEDICARE, SELFPAY ==
--- NOTE | 2025-07-02 09:27 | A.OFFPC_ITS ---
Vital Signs 07/02/25 09:30 Height 5 ft 11 in Weight 233 lb BMI 32.5 BP 136/76 Blood Pressure Location Lt brachial Position Sitting Respiration 14 Pulse 80 Pulse Source Pulse Oximeter Temp 97.9 F Temp Source Oral Pulse Oximetry (%) 97 Oxygen Delivery Method Room Air Intake Visit Reasons: Mouth is sore / bit tongue during sleep Intake Note: Bit tongue last night. Had seizures 6 months ago. 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 His tongue hurt and is red and cut at the end but did stop bleeding. He does not remember biting it in the night. He woke up a few times to urinate otherwise felt in normal state of health. CV: Follows with [facility] Cardiology. On toprol 100 bid, eliquis 5mg twice daily hctz 12.5mg daily, lipitor 80mg daily, lisinopril 40mg daily. Denies chest pain, shortness of breath Allergies: Continues on claritin as needed. Neuro: Hospitalized in December for seizure. History of CVA, TIAs. Following with neurology. On . Underwent multiple day EEG-left temporal region abn. Concern for left meningioma. MRI ordered for last Sunday-open at [facility] but could not tolerate despite oral anxiolytics Takes zinc, b12 1000mg daily, vitamin C, vitamin D, MV Colonoscopy 07/2024-. Told no need to repeat but always has polyps so ?5 years. Follows with [facility] ROS see HPI PHYSICAL EXAM: GENERAL: Alert and oriented x 3. NAD EYES: EOMI. Anicteric. HENT: Moist mucous membranes. Tip of the tongue is lacerated and red. LUNGS: Clear to auscultation bilaterally. CARDIOVASCULAR: Regular rate and rhythm ABDOMEN: Soft, non-tender +bs EXTREMITIES: No edema. Non-tender. SKIN: multiple nevi NEUROLOGIC: No focal neurological deficits. CN II-XII grossly intact PSYCHIATRIC: Cooperative. 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, persistent Hypersomnia Snoring TIA (transient ischemic attack) Hyperlipidemia CHF (congestive heart failure) Atrial fibrillation HTN (hypertension) Surgical History History of prostate surgery Family History Mother Breast cancer Pancreatic cancer Other Diabetes Social History Housing: House Alcohol intake: current Patient Tobacco Use Status: Never used Tobacco e-Cigarette/Vaping Use: Never Used Second Hand Smoke Exposure: No service: Yes Current occupational status: retired Cognitive needs: No Hearing needs: No Vision needs: Yes (cataracts) Questionnaire Thrive Questionnaire Date Thrive assessed: 04/27/25 Physical exam (Primary Care) Vital Signs: Last Vital Signs Temp 97.9 F 07/02/25 09:30 Pulse 80 07/02/25 09:30 Resp 14 07/02/25 09:30 BP 136/76 07/02/25 09:30 Pulse Ox 97 07/02/25 09:30 Oxygen Delivery Method Room Air 07/02/25 09:30 BMI result Body Mass Index 32.5 Tobacco/Smoking Status: Tobacco use Status Tobacco use date assessed 10/17/24 07/02/25 09:33 Patient Tobacco Use Status Never used Tobacco 07/02/25 09:33 e-Cigarette/Vaping Use Never Used 07/02/25 09:33 Thrive Assessment: Date of Thrive Assessment Date Thrive assessed 04/27/25 07/02/25 09:33 Coding Level of Care Code Est Pt Level 4 (96463) Diagnoses Seizure R56.9 Assessment & Plan Assessment & Plan (1) Seizure: Comment: 01/26/2025, witnessed Tonic-clonic grand mal seizure x's 2- likely provoked due to change in alcohol use, dehydration, sleep deprivation due to travel. Code(s): R56.9 - Unspecified convulsions Category: Medical Plan Suspect seizure given considerable tongue injury overnight Bleeding has ceased. Viscious lidocaine sent Neuro follow up for keppra dosing, MRI reschedule Orders: Orders Comprehensive Met. Panel Today R56.9 - Unspecified convulsions Magnesium Today R56.9 - Unspecified convulsions Levetiracetam Keppra Today R56.9 - Unspecified convulsions Medications: New lidocaine HCl 2% (Lidocaine Viscous) swish and spit 1 appl mucous membrane TID PRN 300 mL 0RF pain
[2025-07-02 09:30] VITALS: BP 136/76; PULSE 80; RESP 14; TEMP 36.6; O2SAT 97; BMI 32.5
--- OUTSIDE RECORDS SUMMARY | 2025-07-02 09:59 | XMS_ITS ---
Author Name [facility] Organization Unknown Care Team Organization Name Specialty Phone Email Start Date End Da te [facility] ACO 06/17/2025 [facility] Faisal Hillman Primary Care 10/10/20232023 [facility] Joan Romano MD Primary Care 07/05/2023 06/16/2024 [facility] Rekha Cline Primary Care 09/05/2022 024
--- OUTSIDE RECORDS SUMMARY | 2025-07-02 09:59 | XMS_ITS | Clinical Summary ---
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 CVA (cerebral vascular accident) ([facility] V24, C [place]/[facility] V28) 04/23/2024 HLD (hyperlipidemia) 04/23/2024 Longstanding persistent atri al fibrillation ([facility] V24, [facility] V28) 04/23/2024 Ascending aorta dilation ([facility] V24) 2 Overview (09/21/2024): Last [...] & Plan: New orders requested. Non-ischemic cardiomyopathy ([facility] V24, [facility]/ C V28) 07/10/2014 Overview (09/21/2024): Last [...] in one week. Atrial fibrillation ([facility] V24, [facility] V28) 0 03/30/2011 Overview (09/21/2024): Anticoagulated with apixaban, [id number] score of 4 Rate control strategy CVA [...] and older 06/19/2020,07/08/2018,07/29/2015,06/12,09/02/2013,07/31/2012,08/10/2011 ,08/11/2010,07/28/2009,08/27/2008,07/29 Influenza, Unspecified 06/18/2016 [employer] SARS-CoV-2 COVID-19, mRNA, LNP-S, preservative free 08/29/2022,02/19/2022,08/21/2021,12/29,12/08/2020 [...] Comments Daughter Alive Healthy Father (Age 79) [place], emphys lawrence Maternal Grandfather (Age 80s) O ld age Maternal Grandmother (Age 80s) O ld age Mother (Age 75) diabetes, total knee replacement, breast cancer, CHF Paternal Grandfather (Age 73) [place] Paternal Grandmother Colon c ancer Sister (Age 60) [place] Son Alive Healthy x apica l hypertrophi [...] of 2 - Risk 2-dose series) 1964 Medicare Annual Wellness Visit 10/07/2022 Social Influencers of Health Screening 10/07/2022 Depression Screening 10/29/2024 Falls Risk Assessment 02/28/2025 02/29/2024 COVID-19 Vaccine (8 - Pfizer risk season) 2025 07/30/2024, 07/26/2023, 08/29/2022, Additional history exists Influenza Vaccine (#1) 2025 , 08/12/2023, 07/03/2023, Additional history exists Hypertension/CHF/CAD Annual BMP Blood Test 01/28/2026 01/28/2025, 01/27/2025, 09/04/2023 DTaP,Tdap,and Td Vaccines (6 - Td or Tdap) 04/11/2028 04/11/2018, 06/18/2016, 04/29/2010, Additional history exists Cholesterol Screening (Lipid Panel) 01/26/2030 01/26/2025, 09/04/2023 Hepatitis C Screening Completed 12/26/2013 Zoster Vaccines Completed 09/28/2020, 06/30, 05/22/2018, Additional history exists RSV Immunization Adult Patients Completed 09/02/2023 Pneumococcal Vaccine: 50+ Years Completed 01/03/2024, 10/28/2015, 10/10/2015, Additional history exists Colorectal Cancer Screening: Colonoscopy [...] Health Maintenance Results * Colonoscopy (08/06/2024) Pathologist [facility] Colonoscopy NO INTERPRETATION , ABSTRACTED Anatomical Region Laterality Modality Other [facility] Provider HEALTH MAINTENANCE Final Result * Falls Risk Assessment (02/29/2024) [facility] Falls Risk Assessment ABSTRACTED [facility] Provider HEALTH MAINTENANCE Final Result * Annual BMP Blood Test (09/04/2023) Pathologist [facility] Annual BMP Blood Test ABSTRACTED [facility] Provider HEALTH MAINTENANCE Final Result * Lipid panel (09/04/2023) [facility] LDL/HDL Ratio 2 0 - 4 Triglycerides 50 0 - 150 mg/dL Cholesterol 127 0 - 200 mg/dL HDL 61 >=40 mg/dL LDL Cholesterol 56 0 - 100 mg/dL Blood Venous blood specimen / Unknown Result [facility] Provider LAB BLOOD ORDERABLES Yadira l Result * Hepatitis C Screening (12/26/2013) [facility] Hepatitis C Screening ABSTRACTED [facility] Provider HEALTH MAINTENANCE Final Result from Last 3 Months or Most Recently Relevant to Health Maintenance Insurance MEDICARE [facility]
== END 2025-07-02 09:53 | disposition home or self-care (01) ==
LOC: HO.HMCFM 09:20
PROVIDERS: PCP Internal Medicine; Visit Provider Internal Medicine
DX: R56.9 Unspecified convulsions (principal)

== ENCOUNTER 2025-08-03 08:16 | Outpatient (AMB) | payer MEDICARE, SELFPAY ==
[2025-08-03 08:23] VITALS: BP 120/84; PULSE 65; O2SAT 96; BMI 32.8
--- NOTE | 2025-08-03 08:23 | A.OFFVIS_ITS ---
Vital Signs 08/03/25 08:23 Height 5 ft 11 in Weight 235 lb BMI 32.8 BP 120/84 Blood Pressure Location Rt brachial Position Sitting Pulse 65 Pulse Source Pulse Oximeter Pulse Oximetry (%) 96 Oxygen Delivery Method Room Air Intake Visit Reasons: follow up Intake Note: Patient presents 1 month follow up for seizures. patient states feels great and working in the yard. Dredge Runner Required: No Accompanied by: Spouse Allergies No Known Allergies Allergy (Verified 08/03/25 08:27) Medication List - Last Reconciled 08/03/25 by ANAND Shaver alprazolam 0.25 - 0.5 mg 30 minutes prior to MRI, may repeat up to 0.5mg x's 1; (max dose 1mg/day). 1 day apixaban 5 mg PO BID ascorbic acid (vitamin C) 1 g PO DAILY aspirin (Adult Aspirin Regimen) 81 mg PO DAILY atorvastatin 80 mg PO DAILY bisacodyl 10 mg PO BEDTIME cholecalciferol (vitamin D3) 25 mcg PO DAILY clonazepam 2 mg PO DAILY PRN cyanocobalamin (vitamin B-12) (Vitamin B-12) 1,000 mcg PO DAILY hydrochlorothiazide 12.5 mg PO DAILY levetiracetam (Keppra) 1,500 mg (1.5 x 1,000 mg) PO Q12H 90 days lidocaine HCl 2% (Lidocaine Viscous) 15 mL mucous membrane TID PRN lisinopril 40 mg PO DAILY loratadine 10 mg PO DAILY lorazepam Take one tablet one hour prior to procedure. Repeat 15 minutes before procedure as needed for anxiety metoprolol succinate ER 100 mg PO BID multivitamin 1 tab PO DAILY [polyethylene glycol 236 Take 240 ml by mouth once for 1 dose.] triamcinolone acetonide 0.1% 1 appl topical BID [zinc 50 mg .] HPI Comments Details: 79-yr-old male presents for follow-up visit s/p seizure. patient is accompanied by his . Patient's reports patient has been doing well overall. He has continued to eat better, and abstain from alcohol. He does continue to go to his social clubs, but now drinks alcohol free beers. He endorses one interval episode where he woke up with blood on his pillow and his tongue being cut and bleeding. He did not recall biting his tongue. He denies any postictal symptoms, such as denies soreness, confusion, fatigue. He denies any provoking triggers. His previous witnessed seizure activity was at night. He had been compliant with his Keppra. He did see his PCP, who reached out, and we agreed to increas the Keppra dose to 1500mg bid. Since, he states he has been compliant w/ increased dose of Keppra without adver se effect. Interval 72 hr ambulatory EEG showed: Day 1: WNL Day 2 and 3: abnormal due to rare interictal epileptiform discharges regions during sleep, indicating an increased risk for focal seizures, however, no seizures were recorded. He is due for follow-up head imaging, however scheduling is pending at [facility], as pt states he requires anesthesia in order to complete an MRI. 07/02/2025, HPI: Baseline EEG was unremarkable. Patient denies any interval seizure activity. Denies any spacing out episodes. He states he is tolerating Keppra well without any adverse effects. He does still take vitamin B6. He states he is eating well, taking fluids regularly. He states he has stopped drinking alcohol completely, now when he goes to the social club or the golf course with his friend, he drinks a soda or a non- alcoholic beer. He states he is sleeping well BP is normotensive today. He asks if he can start driving again around town. Previous HPI, 01/30/25: 79-year-old male presents for urgent follow-up appointment for new onset seizure activity occurring on 01/26/2025. Patient is accompanied by his , who assist with history. This past Sunday, pt had his 1st ever seizure attack while he was in [place] to see his son play hockey. states pt was sleeping woke-up to the patient making a loud/snoring/breathing sound, and then found pt was unconscious, bleeding from his mouth- had bitten tongue nad lip, his left arm was rigid/wrist was turning in and shaking, his whole body was shaking. They are unsure exactly how long he was unconscious, but state he did open his eyes and was restless/combative once he was brought into the ambulance. They do not believe he lost urinary control. He was brought to a [place] ER, and then transferred to [facility] in [facility]. Per discharge paperwork, pt had a 2nd seizure during EMS transport to [facility]. Pt required sedation and ICU admission, intubation. Neurocritical diagnosis was first-time seizure, suspected to be due to excess alcohol use and sleep deprivation. Inpatient video EEG was abnormal showing postictal encephalopathy with diffuse voltage attenuation and I use rhythmic delta slowing and background slowing, but did not show any epileptic discharges. Inpatient brain MRI showed chronic white matter changes, encephalomalacia, and a 6 mm probable meningioma. Patient was treated in patient with Keppra. Neurology team had considered holding Keppra, however as patient has known alcohol use, has extensive white intracerebral matter changes, and needed to travel back to [place], patient was advised to continue taking Keppra until we evaluated here. Patient was advised to abstain from alcohol use and to avoid driving for 6 months in accordance with [place] law. He was d/c'd home on keppra 1000mg bid. He believes he takes a vit B 6 supplement. He denies any residual effects- though is a bit fatigued. His tongue and lips are still bruised and sore. They are curious if he should continue on the Keppra, driving restrictions, and alcohol restrictions. states that prior to the seizure- his routine was disrupted by the travel, flight, he had not drank as much fluids as usual- so fluids was primarily diet coke, some alcohol- a beer or two (and that day a celebratory shot), and coffee. Notes that he probably had drank less alcohol than usual- does not drink at home, but drinks everyday at his club- [employer]- 1 bourbon and coke and then goes to 2nd club and has 1-2 more drinks. Patient denies any history of similar seizure activity. 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 a couple of TIAs. And since last January, he has had 4 episodes of staring off in a fog for 5 minutes or so, and then he returns to normal baseline. 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, persistent Hypersomnia Snoring TIA (transient ischemic attack) Hyperlipidemia CHF (congestive heart failure) Atrial fibrillation HTN (hypertension) Surgical History History of prostate surgery Family History Mother Breast cancer Pancreatic cancer Other Diabetes Social History Housing: House Alcohol intake: current Patient Tobacco Use Status: Never used Tobacco e-Cigarette/Vaping Use: Never Used Second Hand Smoke Exposure: No service: Yes Current occupational status: retired Cognitive needs: No Hearing needs: No Vision needs: Yes (cataracts) Physical Exam Vital Signs: Last Vital Signs Pulse 65 08/03/25 08:23 BP 120/84 08/03/25 08:23 Pulse Ox 96 08/03/25 08:23 Oxygen Delivery Method Room Air 08/03/25 08:23 BMI result Body Mass Index 32.8 Const General: cooperative and comfortable Nutritional Appearance: overweight Orientation/consciousness: patient oriented x3 Neuro General: patient oriented x3, gait normal and moves all extremities Cranial nerves: Yes CN's II-XII intact bilaterally Cognition (Neuro): normal cognition Gait exam (Neuro): Normal gait present Motor exam (neuro): 5/5 motor strength present throughout Assessment & Plan Assessment & Plan (1) Seizure: Comment: 01/26/2025, witnessed Tonic-clonic grand mal seizure x's 2- likely provoked due to change in alcohol use, dehydration, sleep deprivation due to travel. 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 Thus, my reccomendation is that he will require life-long AED tx, as this unprovoked seizure occurred while on Keppra tx for history of 2 witnessed seizures (likely provoked due to change in alcohol intake, possible dehydration, sleep deprivation due to travel); significant cerebral white matter changes, chronic microangiopathic changes, encephalomalacia, and history of alcohol use, and chronic anticoagulation which increases risk for injury due to breakthrough seizure activity. Previous baseline EEG- unremarkable. Interval 72 hr ambulatory EEG (at [facility]): day 1 was WNL. Day 2 and 3: abnormal due to rare interictal epileptiform discharges regions during sleep, indicating an increased risk for focal seizures, however, no seizures were recorded. 6 month follow-up brain MRI a sordered- to follow presumed 6 mm left frontal lobe meningioma and white matter changes. Patient was unable to complete open MRI with premedication due to claustrophobia, therefor order has been sent to [facility] for MRI under anesthesia. Previously discontinued Keppra 1,000mg b.i.d. order. Continue Keppra 1500 mg p.o. b.i.d. Continue clonazepam ODT 2 mg, to use for seizure activity lasting longer than 2 minutes. Continue vitamin B6- this can offset risk for mood changes d/t Keppra tx Check CBC, CMP, Vit B6 level Continue to abstain from alcohol use to minimize risk for provoking future seizures, as well as for his overall cardiovascular health and well-being. 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 Reviewed [facility] requirements stating that a person should not drive or operate a motor vehicle for at least 6 months following any seizure activity. Will follow-up upon review of above and patient to follow-up in clinic in 3-4 months or sooner prn. Orders: Orders Vitamin B6 10/06/25 D64.9 - Anemia, unspecified, R56.9 - Unspecified convulsions Complete Blood Count Auto Diff 08/03/25 D64.9 - Anemia, unspecified, R56.9 - Unspecified convulsions Comprehensive [place]. 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
--- OUTSIDE RECORDS SUMMARY | 2025-08-03 08:33 | XMS_ITS | Clinical Summary ---
Author Organization 300 [facility] Address [address] [place] [address] Phone Care Team Providers Care Spring Fitter Helper Name Role Phone Unavailable Primary Care Provider [...] with inhibited sexual excitement Secondary hypercoagulable state ([facility] V24) TIA (transient ischemic attack) 04/26/2024 Overview [...] current medical therapies. CVA (cerebral vascular accident) ([facility] V24, [place] V28) 04/23/2024 HLD (hyperlipidemia) 04/23/2024 Longstanding persistent atri al fibrillation ([facility] V24, [facility] V28) 04/23/2024 Ascending aorta dilation ([facility] V24) 2 Overview (09/21/2024): Last Assessment & [...] & Plan: New orders requested. Non-ischemic cardiomyopathy ([facility] V24, [facility] V28) 07/10/2014 Overview (09/21/2024): Last [...] 4 pounds in one week. Atrial fibrillation ([facility] V24, [facility] V28) 0 03/30/2011 Overview (09/21/2024): Anticoagulated with apixaban, [id number] score of 4 Rate control strategy CVA [...] stable on most recent check 04/06/2024. Immunizations Immunization Administration Dates Next Due DTaP, Unspecified 08/28/2001 H1N1 Inj Preservative Free 11/01/2009 Influenza Quadravalent, MDCK , 0.5ml, with preservative (Flucelvax) 6mo and older 06/18/2016 Influenza trivalent, 0.5mL ( Fluad) 65yo and older 08/12/2023,07/18/2022,06/06/2017 Influenza trivalent, 0.5mL, preservative free (Fluarix; FluLaval; Fluzone) ages 6mo and older (Afluria) 3 years and older 06/19/2020,07/08/2018,07/29/2015,06/12,09/02/2013,07/31/2012,08/10/2011 ,08/11/2010,07/28/2009,08/27/2008,07/29 Influenza, Unspecified 06/18/2016 [employer] SARS-CoV-2 COVID-19, mRNA, LNP-S, preservative free 08/29/2022,02/19/2022,08/21/2021,12/29,12/08/2020 [...] Comments Daughter Alive Healthy Father (Age 79) [place], emphys lawrence Maternal Grandfather (Age 80s) O ld age Maternal Grandmother (Age 80s) O ld age Mother (Age 75) diabetes, total knee replacement, breast cancer, CHF Paternal Grandfather (Age 73) [place] Paternal Grandmother Colon c ancer Sister (Age 60) [place] Son Alive Healthy x apica l hypertrophi [...] of 2 - Risk 2-dose series) 1964 Social Influencers of Health Screening 10/07/2022 Depression Screening 10/29/2024 Falls Risk Assessment 02/28/2025 02/29/2024 COVID-19 Vaccine (8 - Pfizer risk season) 2025 07/30/2024, 07/26/2023, 08/29/2022, Additional history exists Influenza Vaccine (#1) 2025 , 08/12/2023, 07/03/2023, Additional history exists Hypertension/CHF/CAD Annual BMP Blood Test 01/28/2026 01/28/2025, 01/27/2025, 09/04/2023 Medicare Annual Wellness Visit 04/27/2026 04/27/2025 DTaP,Tdap,and Td Vaccines (6 - Td or [...] Health Maintenance Results * Colonoscopy (08/06/2024) Pathologist [facility] Colonoscopy NO INTERPRETATION , ABSTRACTED Anatomical Region Laterality Modality Other [facility] Provider HEALTH MAINTENANCE Final Result * Falls Risk Assessment (02/29/2024) [facility] Falls Risk Assessment ABSTRACTED [facility] Provider HEALTH MAINTENANCE Final Result * Annual BMP Blood Test (09/04/2023) Pathologist [facility] Annual BMP Blood Test ABSTRACTED [facility] Provider HEALTH MAINTENANCE Final Result * Lipid panel (09/04/2023) [facility] LDL/HDL Ratio 2 0 - 4 Triglycerides 50 0 - 150 mg/dL Cholesterol 127 0 - 200 mg/dL HDL 61 >=40 mg/dL LDL Cholesterol 56 0 - 100 mg/dL Blood Venous blood specimen / Unknown [facility] Provider LAB BLOOD ORDERABLES Yadira l Result * Hepatitis C Screening (12/26/2013) [facility] Hepatitis C Screening ABSTRACTED [facility] Provider HEALTH MAINTENANCE Final Result from Last 3 Months or Most Recently Relevant to Health Maintenance Insurance MEDICARE [facility]
== END 2025-08-03 09:49 | disposition home or self-care (01) ==
LOC: HO.HSMS 08:17
PROVIDERS: PCP Internal Medicine; Visit Provider Nurse Practitioner Family
DX: R56.9 Unspecified convulsions (principal); R90.82 White matter disease, unspecified; I99.9 Unspecified disorder of circulatory system; D32.0 Benign neoplasm of cerebral meninges
CPT/HCPCS: 99214

== ENCOUNTER 2025-08-03 08:16 | Outpatient (REF) | payer MEDICARE, SELFPAY ==
[2025-08-03 13:24] LABS: MANUAL DIFF FLAG NO
[2025-08-03 13:43] LABS: Hematocrit 40.1 % (42.0-52.0); Hemoglobin 13.7 g/dl (14.0-18.0); Imm Gran Abs Auto 0.07 X10*3/uL (0.00-0.03); Imm Gran Pct Auto 0.9 % (0.0-0.4); Lymphocytes Absolute Auto 1.8 X10*3/uL (1.2-4.9); Mean Corpuscular HGB Conc 34.2 g/dl (31.0-36.0); Mean Corpuscular Hemoglobin 30.0 pg (27.0-33.0); Mean Corpuscular Volume 87.7 fL (80.0-98.0); NRBC Abs Auto 0.000 X10*3/uL (0.0-0.012); NRBC Pct Auto 0.0 /100WBC (0.0-0.2); Platelet Count 190 X10*3/uL (160-400); Red Blood Count 4.57 X10*6/uL (4.60-5.80); White Blood Count 7.9 X10*3/uL (4.8-10.8)
[2025-08-03 14:07] LABS: Alanine Aminotransferase 23 U/L (0-40); Albumin Level 3.7 g/dL (3.5-5.0); Alkaline Phosphatase 87 U/L (39-117); Anion Gap 12 (12-20); Aspartate Amino Transferase 33 U/L (5-37); Blood Urea Nitrogen 14 mg/dL (9-16); Calcium 8.7 mg/dL (8.4-10.2); Carbon Dioxide 25 mmol/L (22-29); Chloride 109 mmol/L (96-108); Estimated Glomerular Filt Rate > 60; Potassium 4.8 mmol/L (3.3-5.1); Sodium 141 mmol/L (135-145); Total Protein 6.4 g/dL (6.5-8.0)
== END 2025-08-03 08:17 | disposition home or self-care (01) ==
LOC: HO.HKASLDS 08:16
PROVIDERS: PCP Internal Medicine; Visit Provider Nurse Practitioner Family
DX: R56.9 Unspecified convulsions (principal); R90.82 White matter disease, unspecified; I99.9 Unspecified disorder of circulatory system; D32.0 Benign neoplasm of cerebral meninges; D64.9 Anemia, unspecified; Z79.899 Other long term (current) drug therapy
CPT/HCPCS: 36415; 80053; 84207; 85025; 99212

== ENCOUNTER 2025-09-23 07:41 | Outpatient (AMB) | payer MEDICARE, SELFPAY ==
--- OUTSIDE RECORDS SUMMARY | 2025-09-23 07:45 | XMS_ITS | Clinical Summary ---
Author Organization 300 [facility] Address [address] [place] [address] Phone Care Team Providers Care Hand Inspector Name Role Phone Unavailable Primary Care Provider [...] with inhibited sexual excitement Secondary hypercoagulable state ([facility] V24) TIA (transient ischemic attack) [...] current medical therapies. CVA (cerebral vascular accident) ([facility] V24, [facility] [place] V28) 04/23/2024 HLD (hyperlipidemia) 04/23/2024 Longstanding persistent atri al fibrillation ([facility] V24, [facility] V28) 04/23/2024 Ascending aorta dilation ([facility] V24) 2 Overview (09/21/2024): Last [...] & Plan: New orders requested. Non-ischemic cardiomyopathy ([facility] V24, [facility] V28) 07/10/2014 Overview (09/21/2024): Last Assessment [...] 4 pounds in one week. Atrial fibrillation ([facility] V24, [facility] V28) 0 03/30/2011 Overview (09/21/2024): Anticoagulated with apixaban, [id number] score of 4 Rate control strategy CVA [...] and older 06/19/2020,07/08/2018,07/29/2015,06/12,09/02/2013,07/31/2012,08/10/2011 ,08/11/2010,07/28/2009,08/27/2008,07/29 Influenza, Unspecified 06/18/2016 [employer] SARS-CoV-2 COVID-19, mRNA, LNP-S, preservative free 08/29/2022,02/19/2022,08/21/2021,12/29,12/08/2020 [...] Comments Daughter Alive Healthy Father (Age 79) [place], emphys lawrence Maternal Grandfather (Age 80s) O ld age Maternal Grandmother (Age 80s) O ld age Mother (Age 75) diabetes, total knee replacement, breast cancer, CHF Paternal Grandfather (Age 73) [place] Paternal Grandmother Colon c ancer Sister (Age 60) [place] Son Alive Healthy x apica l hypertrophi [...] Falls Risk Assessment 02/28/2025 02/29/2024 COVID-19 Vaccine ( season) 2025 07/30/2024, 07/26/2023, 08/29/2022, Additional history [...] Health Maintenance Results * Colonoscopy (08/06/2024) Pathologist [facility] Colonoscopy NO INTERPRETATION , ABSTRACTED Anatomical Region Laterality Modality Other [facility] Provider HEALTH MAINTENANCE Final Result * Falls Risk Assessment (02/29/2024) [facility] Falls Risk Assessment ABSTRACTED [facility] Provider HEALTH MAINTENANCE Final Result * Annual BMP Blood Test (09/04/2023) Pathologist [facility] Annual BMP Blood Test ABSTRACTED [facility] Provider HEALTH MAINTENANCE Final Result * Lipid panel (09/04/2023) [facility] LDL/HDL Ratio 2 0 - 4 Triglycerides 50 0 - 150 mg/dL Cholesterol 127 0 - 200 mg/dL HDL 61 >=40 mg/dL LDL Cholesterol 56 0 - 100 mg/dL Blood Venous blood specimen / Unknown Result [facility] Provider LAB BLOOD ORDERABLES Yadira l Result * Hepatitis C Screening (12/26/2013) [facility] Hepatitis C Screening ABSTRACTED [facility] Provider HEALTH MAINTENANCE Final Result from Last 3 Months or Most Recently Relevant to Health Maintenance Insurance MEDICARE [facility]
[2025-09-23 07:46] VITALS: BP 120/82; PULSE 68; O2SAT 96; BMI 32.9
--- NOTE | 2025-09-23 07:46 | A.OFFVIS_ITS ---
Vital Signs 09/23/25 07:46 Height 5 ft 11 in Weight 236 lb BMI 32.9 BP 120/82 Blood Pressure Location Rt brachial Position Sitting Pulse 68 Pulse Source Pulse Oximeter Pulse Oximetry (%) 96 Oxygen Delivery Method Room Air Intake Visit Reasons: follow up to MRI appointment to go over results Intake Note: Follow up MRI to go over results Market Maker Required: No Accompanied by: Spouse Allergies No Known Allergies Allergy (Verified 09/23/25 07:46) Medication List - Last Reconciled 09/23/25 by Francy Hassan MD apixaban 5 mg PO BID ascorbic acid (vitamin C) 1 g PO DAILY aspirin (Adult Aspirin Regimen) 81 mg PO DAILY atorvastatin 80 mg PO DAILY cholecalciferol (vitamin D3) 25 mcg PO DAILY clonazepam 2 mg PO DAILY PRN cyanocobalamin (vitamin B-12) (Vitamin B-12) 1,000 mcg PO DAILY hydrochlorothiazide 12.5 mg PO DAILY levetiracetam (Keppra) 1 tab qam and 1.5 tabs qhs orally every 12 hours; 90 days lisinopril 40 mg PO DAILY loratadine 10 mg PO DAILY metoprolol succinate ER 100 mg PO BID multivitamin 1 tab PO DAILY pyridoxine (vitamin B6) 100 mg PO 2XW triamcinolone acetonide 0.1% 1 appl topical BID [zinc 50 mg .] HPI Comments Details: 79-yr-old male presents for follow-up visit s/p seizure. patient is accompanied by his . Patient's reports patient has been doing well overall. He has continued to eat better, and abstain from alcohol. He does continue to go to his social clubs, but now drinks alcohol free beers.No alcohol since December 2024. No seizures since last visit. He endorses one interval episode 3 mths where he woke up with blood on his pillow and his tongue being cut and bleeding. He did not recall biting his tongue. He denies any postictal symptoms, such as denies soreness, confusion, fatigue. He denies any provoking triggers. His previous witnessed seizure activity was at night. He had been compliant with his Keppra. He did see his PCP, who reached out, and we agreed to increase the Keppra dose to 1000mg qam and 1500mg qhs Since, he states he has been compliant w/ increased dose of Keppra without adverse effect. Interval 72 hr ambulatory EEG showed: Day 1: WNL Day 2 and 3: abnormal due to rare interictal epileptiform discharges regions during sleep, indicating an increased risk for focal seizures, however, no seizures were recorded. Previous HPI, 01/30/25: 79-year-old male presents for urgent follow-up appointment for new onset seizure activity occurring on 01/26/2025. Patient is accompanied by his , who assist with history. This past Sunday, pt had his 1st ever seizure attack while he was in [place] to see his son play hockey. states pt was sleeping woke-up to the patient making a loud/snoring/breathing sound, and then found pt was unconscious, bleeding from his mouth- had bitten tongue nad lip, his left arm was rigid/wrist was turning in and shaking, his whole body was shaking. They are unsure exactly how long he was unconscious, but state he did open his eyes and was restless/combative once he was brought into the ambulance. They do not believe he lost urinary control. He was brought to a [place] ER, and then transferred to [facility] in [facility]. Per discharge paperwork, pt had a 2nd seizure during EMS transport to [facility]. Pt required sedation and ICU admission, intubation. Neurocritical diagnosis was first-time seizure, suspected to be due to excess alcohol use and sleep deprivation. Inpatient video EEG was abnormal showing postictal encephalopathy with diffuse voltage attenuation and I use rhythmic delta slowing and background slowing, but did not show any epileptic discharges. Inpatient brain MRI showed chronic white matter changes, encephalomalacia, and a 6 mm probable meningioma. Patient was treated in patient with Keppra. Neurology team had considered holding Keppra, however as patient has known alcohol use, has extensive white intracerebral matter changes, and needed to travel back to [place], patient was advised to continue taking Keppra until we evaluated here. Patient was advised to abstain from alcohol use and to avoid driving for 6 months in accordance with [place] law. He was d/c'd home on keppra 1000mg bid. He believes he takes a vit B 6 supplement. He denies any residual effects- though is a bit fatigued. His tongue and lips are still bruised and sore. They are curious if he should continue on the Keppra, driving restrictions, and alcohol restrictions. states that prior to the seizure- his routine was disrupted by the travel, flight, he had not drank as much fluids as usual- so fluids was primarily diet coke, some alcohol- a beer or two (and that day a celebratory shot), and coffee. Notes that he probably had drank less alcohol than usual- does not drink at home, but drinks everyday at his club- [employer] and then goes to 2nd club and has 1-2 more drinks. Patient denies any history of similar seizure activity. 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 a couple of TIAs. And since last January, he has had 4 episodes of staring off in a fog for 5 minutes or so, and then he returns to normal baseline. 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, persistent Hypersomnia Snoring TIA (transient ischemic attack) Hyperlipidemia CHF (congestive heart failure) Atrial fibrillation HTN (hypertension) Surgical History History of prostate surgery Family History Mother Breast cancer Pancreatic cancer Other Diabetes Social History Housing: House Alcohol intake: current Patient Tobacco Use Status: Never used Tobacco e-Cigarette/Vaping Use: Never Used Second Hand Smoke Exposure: No service: Yes Current occupational status: retired Cognitive needs: No Hearing needs: No Vision needs: Yes (cataracts) Physical Exam Vital Signs: Last Vital Signs Pulse 68 09/23/25 07:46 BP 120/82 09/23/25 07:46 Pulse Ox 96 09/23/25 07:46 Oxygen Delivery Method Room Air 09/23/25 07:46 BMI result Body Mass Index 32.9 Const General: cooperative and comfortable Nutritional Appearance: overweight Orientation/consciousness: patient oriented x3 Neuro General: patient oriented x3, gait normal and moves all extremities Cranial nerves: Yes CN's II-XII intact bilaterally Cognition (Neuro): normal cognition Gait exam (Neuro): Normal gait present Motor exam (neuro): 5/5 motor strength present throughout Results Reviewed Results Reviewed: MRI Brain with and without contrast - 08/27/2025 No acute infarct. Chronic right frontal and left posterior cerebellar infarct PVWMD Assessment & Plan Assessment & Plan (1) Seizure: Comment: 01/26/2025, witnessed Tonic-clonic grand mal seizure x's 2- likely provoked due to change in alcohol use, dehydration, sleep deprivation due to travel. 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 qhs Continue clonazepam ODT 2 mg, to use for seizure activity lasting longer than 2 minutes. Continue vitamin B6- this can offset risk for mood changes d/t Keppra tx Check CBC, CMP- normal Vit B6 level- high - decrease B6 to 2-3 times a week Continue to abstain from alcohol use to minimize risk for provoking future seizures, as well as for his overall cardiovascular health and well-being. 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 Reviewed [facility] requirements stating that a person should not drive or operate a motor vehicle for at least 6 months following any seizure activity. SUggested home sleep test to r/o sleep apnea which might be contributing to his nocturnal episodes. 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
== END 2025-09-23 08:35 | disposition home or self-care (01) ==
LOC: HO.HSMS 07:42
PROVIDERS: PCP Internal Medicine; Visit Provider Psychiatry & Neurology Neurology
DX: R56.9 Unspecified convulsions (principal); R90.82 White matter disease, unspecified; I99.9 Unspecified disorder of circulatory system; D32.0 Benign neoplasm of cerebral meninges
CPT/HCPCS: 99214; G2211

== ENCOUNTER → 2025-09-23 07:41 | Outpatient (BNVA) | payer MEDICARE, SELFPAY | PROVIDERS: PCP Internal Medicine; Visit Provider Psychiatry & Neurology Neurology | DX: R56.9 Unspecified convulsions (principal); R90.82 White matter disease, unspecified; I99.9 Unspecified disorder of circulatory system; D32.0 Benign neoplasm of cerebral meninges; F10.11 Alcohol abuse, in remission; G47.19 Other hypersomnia | CPT/HCPCS: 99212 ==

== ENCOUNTER 2025-10-26 10:45 | Outpatient (AMB) | payer MEDICARE, SELFPAY ==
--- NOTE | 2025-10-26 10:51 | MHC.PC.OV ---
Vital Signs 10/26/25 10:57 Weight 237 lb 4 oz BP 135/87 Blood Pressure Location Lt brachial Position Sitting Respiration 14 Pulse 75 Pulse Source Pulse Oximeter Temp 97.5 F Temp Source Oral Pulse Oximetry (%) 98 Oxygen Delivery Method Room Air Intake Visit Reasons: BP follow up Intake Note: Blood pressure follow up Caustic Strength Inspector Required: No Allergies No Known Allergies Allergy (Verified 10/26/25 10:51) Medication List - Last Reconciled 10/26/25 by Devorah Francisco MD apixaban 5 mg PO BID aspirin (Adult Aspirin Regimen) 81 mg PO BID atorvastatin 80 mg PO DAILY cholecalciferol (vitamin D3) 25 mcg PO DAILY clonazepam 2 mg PO DAILY PRN cyanocobalamin (vitamin B-12) (Vitamin B-12) 1,000 mcg PO .twice a week hydrochlorothiazide 12.5 mg PO DAILY levetiracetam (Keppra) 2,500 mg PO Q12H lisinopril 40 mg PO DAILY loratadine 10 mg PO DAILY metoprolol succinate ER 100 mg PO BID multivitamin 1 tab PO DAILY pyridoxine (vitamin B6) 100 mg PO 2XW triamcinolone acetonide 0.1% 1 appl topical BID Tobacco use date assessed: 10/26/25 Fall risk assessment: No Falls in past year Last assessed Fall Risk: 10/26/25 Dental Screening Dental Screen Date: 10/26/25 Did you have a dental visit in the last 12 months?: No Did you have a dental problem in the last 6 months where you did not have access to dental care?: No Was dental information given to patient?: Patient has dentist HPI HPI Comments History of Present Illness Details The patient is a 78 year old male with a past medical history of CHF, atrial fibrillation, htn, hld, CVA, TIAs, seizure presenting for follow up CV: Follows with [facility]. On toprol 100 bid, eliquis 5mg twice daily hctz 12.5mg daily, lipitor 80mg daily, lisinopril 40mg daily. BP fairly well controlled. Denies chest pain, shortness of breath Allergies: Continues on claritin as needed. Neuro: Following [facility] neuro. Hospitalized in December for seizure. History of CVA, TIAs. On keppra. Underwent multiple day EEG-left temporal region abn. Concern for left meningioma. Has not been tolerant of MRI. Takes zinc, b12 1000mg daily, vitamin C, vitamin D, MV Colonoscopy 07/2024-. Told no need to repeat but always has polyps so ?5 years. Follows with [facility] see HPI PHYSICAL EXAM: GENERAL: Alert and oriented x 3. NAD EYES: EOMI. Anicteric. HENT: Moist mucous membranes. Tip of the tongue is lacerated and red. LUNGS: Clear to auscultation bilaterally. CARDIOVASCULAR: Regular rate and rhythm ABDOMEN: Soft, non-tender +bs EXTREMITIES: No edema. Non-tender. SKIN: multiple nevi NEUROLOGIC: No focal neurological deficits. CN II-XII grossly intact PSYCHIATRIC: Cooperative. 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, persistent Hypersomnia Snoring TIA (transient ischemic attack) Hyperlipidemia CHF (congestive heart failure) Atrial fibrillation HTN (hypertension) Surgical History History of prostate surgery Family History Mother Breast cancer Pancreatic cancer Other Diabetes Social History Housing: House Alcohol intake: current Patient Tobacco Use Status: Never used Tobacco e-Cigarette/Vaping Use: Never Used Second Hand Smoke Exposure: No service: Yes Current occupational status: retired Cognitive needs: No Hearing needs: No Vision needs: Yes (cataracts) Questionnaire Thrive Questionnaire Date Thrive assessed: 04/27/25 AUDIT C Alcohol Use Questionnaire (AUDIT-C) 1. How often do you have a drink containing alcohol?: Never 3. How often do you have six or more drinks on one occasion?: Never Total Score: 0 Physical exam (Primary Care) Vital Signs: Last Vital Signs Temp 97.5 F 10/26/25 10:57 Pulse 75 10/26/25 10:57 Resp 14 10/26/25 10:57 BP 135/87 10/26/25 10:57 Pulse Ox 98 10/26/25 10:57 Oxygen Delivery Method Room Air 10/26/25 10:57 Tobacco/Smoking Status: Tobacco use Status Tobacco use date assessed 10/26/25 10/26/25 10:59 Patient Tobacco Use Status Never used Tobacco 10/26/25 10:59 e-Cigarette/Vaping Use Never Used 10/26/25 10:59 Thrive Assessment: Date of Thrive Assessment Date Thrive assessed 04/27/25 10/26/25 10:59 Coding Level of Care Code Est Pt Level 4 (65858) Diagnoses Intracranial meningioma D32.0 Congestive heart failure, unspecified HF chronicity, unspecified heart failure type I50.9 Heart failure type: unspecified Heart failure chronicity: unspecified Primary hypertension I10 Hypertension type: primary hypertension Atrial fibrillation, unspecified type I48.91 Atrial fibrillation type: unspecified Assessment & Plan Assessment & Plan (1) Intracranial meningioma: Comment: 01/26/2025 brain MRI w/wo- left frontal lobe Code(s): D32.0 - Benign neoplasm of cerebral meninges Category: Medical (2) CHF (congestive heart failure): Code(s): I50.9 - Heart failure, unspecified Category: Medical Qualifiers: Heart failure type: unspecified Heart failure chronicity: unspecified Qualified Code(s): I50.9 - Heart failure, unspecified (3) HTN (hypertension): Code(s): I10 - Essential (primary) hypertension Category: Medical Qualifiers: Hypertension type: primary hypertension Qualified Code(s): I10 - Essential (primary) hypertension (4) Atrial fibrillation: Code(s): I48.91 - Unspecified atrial fibrillation Category: Medical Qualifiers: Atrial fibrillation type: unspecified Qualified Code(s): I48.91 - Unspecified atrial fibrillation Plan 80 yo presenting for follow up Interval history reviewed Seizure d/o, intracranial meningioma-following with neurology CV-blood pressure fairly well controlled.continue cardiology follow up Medications: Changed From levetiracetam (Keppra) 2,500 mg PO Q12H To levetiracetam (Keppra) Take 1000mg oral every morning and 1500mg oral every evening 225 tabs 3RF
[2025-10-26 10:57] VITALS: BP 135/87; PULSE 75; RESP 14; TEMP 36.4; O2SAT 98
--- OUTSIDE RECORDS SUMMARY | 2025-10-26 12:20 | XMS_ITS | Clinical Summary ---
Author Organization [address] [facility] Address [address] [place] [address] Phone Care Team Providers Care Lease Out Worker Name Role Phone Unavailable Primary Care Provider [...] fibrillation 03/30/2011 Overview (09/21/2024): Anticoagulated with apixaban, [id number] score of 4 Rate control strategy CVA [...] and older 06/19/2020,07/08/2018,07/29/2015,06/12,09/02/2013,07/31/2012,08/10/2011 ,08/11/2010,07/28/2009,08/27/2008,07/29 Influenza, Unspecified 06/18/2016 Pfizer SARS-CoV-2 COVID-19, mRNA, LNP-S, preservative free 08/29/2022,02/19/2022,08/21/2021,12/29,12/08/2020 [...] Comments Daughter Alive Healthy Father (Age 79) PA, emphys lawrence Maternal Grandfather (Age 80s) O ld age Maternal Grandmother (Age 80s) O ld age Mother (Age 75) diabetes, total knee replacement, breast cancer, CHF Paternal Grandfather (Age 73) PA Paternal Grandmother Colon c ancer Sister (Age 60) PA Son Alive Healthy x apica l hypertrophi [...] on file Sexual Orientation Not on file Last Filed Vital Signs Vital Sign Reading [...] Health Maintenance Due Date Last Done Comments Drug Screen 1945 Non-Opioid Controlled Substance Agreement 1945 Hepatitis A Vaccines (1 of 2 - [...] to Health Maintenance Results * Colonoscopy (08/06/2024) Colonoscopy NO INTERPRETATION , ABSTRACTED Anatomical Region Laterality Modality Other us Historical Provider HEALTH MAINTENANCE Final Result * Falls Risk Assessment (02/29/2024) Pathologist [facility] Falls Risk Assessment ABSTRACTED [facility] Provider HEALTH MAINTENANCE Final Result * Annual BMP Blood Test (09/04/2023) Pathologist [facility] Annual BMP Blood Test ABSTRACTED [facility] Provider HEALTH MAINTENANCE Final Result * Lipid panel (09/04/2023) [facility] LDL/HDL Ratio 2 0 - 4 Triglycerides 50 0 - 150 mg/dL Cholesterol 127 0 - 200 mg/dL HDL 61 >=40 mg/dL LDL Cholesterol 56 0 - 100 mg/dL Blood Venous blood specimen / Unknown Result [facility] Provider LAB BLOOD ORDERABLES Yadira l Result * Hepatitis C Screening (12/26/2013) [facility] Hepatitis C Screening ABSTRACTED Result [facility] Provider HEALTH MAINTENANCE Final Result from Last 3 Months or Most Recently Relevant to Health Maintenance Insurance MEDICARE [facility]
== END 2025-10-26 15:45 | disposition home or self-care (01) ==
LOC: HO.HMCFM 10:46
PROVIDERS: PCP Internal Medicine; Visit Provider Internal Medicine
DX: D32.0 Benign neoplasm of cerebral meninges (principal); I50.9 Heart failure, unspecified; I10 Essential (primary) hypertension; I48.91 Unspecified atrial fibrillation

== ENCOUNTER → 2025-10-26 10:45 | Outpatient (BNVA) | payer MEDICARE, SELFPAY | PROVIDERS: PCP Internal Medicine; Visit Provider Internal Medicine | DX: D32.0 Benign neoplasm of cerebral meninges (principal); G40.909 Epilepsy, unspecified, not intractable, without status epilepticus; I11.0 Hypertensive heart disease with heart failure; I50.9 Heart failure, unspecified; I48.91 Unspecified atrial fibrillation; Z86.73 Personal history of transient ischemic attack (TIA), and cerebral infarction without residual deficits; Z79.01 Long term (current) use of anticoagulants; Z79.899 Other long term (current) drug therapy | CPT/HCPCS: 99212 ==